=== PATIENT | male | born 1970 ===

== ENCOUNTER 2017-07-11 16:39 | Inpatient (IN) | payer OTHER ==
--- NOTE | 2017-07-11 18:00 | ED PDOC ---
Arrival/HPI - General Chief Complaint: Trauma Time Seen by Provider: 07/11/17 17:53 Historian: Patient, Family, Other (co-worker) EM Caveat: Acuity of Condition, Language Barrier (senegalese) - History of Present Illness Narrative History of Present Illness (Text): 07/11/17 17:53 Pt is a 47 yo male BIBA for an injury to the left hip s/p fall at work from a ladder approximately 36 inches in height. Pt reports that he was climbing the ladder and as he went to take anther step, the ladder base shifted and both he and the ladder tipped and landed on his left side on a plywood surface with stacked 4x4 wooden slabs. A co-worker, who is at bedside, immediately ran to help him. Pt was not able to move his leg well and could not weight-bear on standing. Denies LOC, vertigo, head trauma or injury to other body part, recent illness, cp, sob, NGUYEN, seizure activity, or previous hip, leg or back pain. Time/Duration: 1 hour Symptom Onset: Sudden Symptom Course: Worsening Quality: Aching, Pressure Severity Level: Moderate, Severe Activities at Onset: Rest, Light Context: Work Past Medical History - Provider Review Nursing Documentation Reviewed: Yes - Travel History Have you recently traveled outside [place] w/in the past 3 mons?: No - Past History Past History: No Previous - Infectious Disease Hx of Infectious Diseases: None - Tetanus Immunization Tetanus Immunization: Unknown - Psychiatric Hx Substance Use: No - Anesthesia Hx Anesthesia: No Family/Social History - Physician Review Nursing Documentation Reviewed: Yes Family/Social History: Unknown Family HX Smoking Status: Never Smoked Hx Alcohol Use: No Hx Substance Use: No Allergies/Home Meds Allergies/Adverse Reactions: Allergies No Known Allergies Allergy (Verified 07/11/17 16:53) Home Medications: Home Meds Medication Instructions Recorded Confirmed No Known Home Med 07/11/17 07/11/17 Review of Systems - Review of Systems Systems not reviewed;Unavailable: Acuity of Condition Constitutional: Normal Eyes: Normal ENT: Normal Respiratory: Normal Cardiovascular: Normal Gastrointestinal: Normal Genitourinary Male: Normal Musculoskeletal: Other (Left hip and thigh pain) Skin: Normal Neurological: Normal Endocrine: Normal Hemo/Lymphatic: Normal Psychiatric: Normal Physical Exam Vital Signs Reviewed: Yes Vital Signs Temp Pulse Resp BP Pulse Ox 07/11/17 22:05 90 16 132/91 H 97 07/11/17 16:54 97.9 F 94 H 18 140/87 100 Temperature: Afebrile Blood Pressure: Normal Pulse: Regular Respiratory Rate: Normal Appearance: Positive for: Non-Toxic, Uncomfortable Pain Distress: Moderate Mental Status: Positive for: Alert and Oriented X 3 - Systems Exam Head: Present: Atraumatic, Normocephalic Pupils: Present: PERRL Extroacular Muscles: Present: EOMI Conjunctiva: Present: Normal Mouth: Present: Moist Mucous Membranes Neck: Present: Normal Range of Motion Respiratory/Chest: Present: Clear to Auscultation, Good Air Exchange. No: Respiratory Distress, Accessory Muscle Use Cardiovascular: Present: Regular Rate and Rhythm, Normal S1, S2. No: Murmurs Abdomen: Present: Normal Bowel Sounds. No: Tenderness, Distention, Peritoneal Signs Back: Present: Normal Inspection Upper Extremity: Present: Normal Inspection. No: Cyanosis, Edema Lower Extremity: Present: NORMAL PULSES, Tenderness (left anterior and lateral hip pain on palpation), Neurovascularly Intact, Other (left anterior and lateral hip pain on palpation). No: Edema Neurological: Present: GCS=15, CN II-XII Intact, Speech Normal Skin: Present: Warm, Dry, Normal Color. No: Rashes Psychiatric: Present: Alert, Oriented x 3, Normal Insight, Normal Concentration Medical Decision Making ED Course and Treatment: 07/11/17 18:00 Impression Pt is a 47 yo male BIBA for an injury to the left hip s/p fall at work from a ladder approximately 36 inches in height. On exam, pt is neurovascularily intact bilateral LE, no left LE internal or external rotation appreciated, good EHL and dorsi and plantar flexion motor control; negative quad contraction limited by pain; point tenderness over the lateral hip; pt declined to stand and guarded left leg Plan Left hip XR in multiple views pain management assess and dispo Progress Note Toradol 30 mg im given to manage pain advised pt that x-ray positive for left femoral neck fracture and will require admission to orthopedic surgery coags and labs sent, ecg and cxr Spoke with dr. John but was redirected to Dr. 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 No IM Administration Charges Document 07/11/17 18:45 HI (Rec: 07/11/17 18:53 [id number]) Charges for Administration # of IM Administrations 1 Disposition/Present on Arrival - Present on Arrival Any Indicators Present on Arrival: Yes History of DVT/PE: No History of Uncontrolled Diabetes: No Urinary Catheter: No History of Decub. Ulcer: No History Surgical Site Infection Following: None - Disposition Have Diagnosis and Disposition been Completed?: Yes Diagnosis: Hip fracture, Left hip pain Disposition: HOSPITALIZED Disposition Time: 21:00 Patient Plan: Admission Condition: STABLE
--- NOTE | 2017-07-11 20:03 | RAD ---
EXAM: XR Left Hip With Pelvis When Performed, 2 or 3 Views CLINICAL HISTORY: 47 years old, male; Injury or trauma; Fall; Initial encounter; Blunt trauma (contusions or hematomas); Left; Hip TECHNIQUE: Two or three views of the left hip, with pelvis when performed. COMPARISON: No relevant prior studies available. FINDINGS: Bones/joints: Fracture left femoral neck, age-indeterminate. Superior displacement of distal fracture fragment. No dislocation. Soft tissues: Unremarkable. IMPRESSION: 1. Left femoral neck fracture.
[2017-07-11 21:33] LABS: HEMOGLOBIN 14.2 g/dL (14.0-18.0); MEAN CORPUSCULAR HEMOGLOBIN 28.1 pg (25.0-35.0); MEAN CORPUSCULAR HGB CONC 33.8 g/dl (31.0-37.0); RBC 5.06 10^6/uL (3.5-6.1); RED CELL DISTRIBUTION WIDTH 13.2 % (11.5-14.5); WHITE BLOOD COUNT 14.7 10^3/ul (4.5-11.0)
[2017-07-11 21:39] LABS: ALB/GLOB RATIO 1.6 (1.1-1.8); ALBUMIN 4.8 g/dL (3.0-4.8); ALT/SGPT 57 U/L (7-56); AST/SGOT 48 U/L (17-59); BLOOD UREA NITROGEN 19 mg/dL (7-21); GFR AFRICAN-AMERICAN > 60; GFR NON-AFRICAN AMERICAN > 60
[2017-07-11 21:42] LABS: INR 1.14 (0.93-1.08); PARTIAL THROMBOPLASTIN TIME 29.4 Seconds (25.1-36.5)
[2017-07-11 22:19] LABS: URINE APPEARANCE CLEAR (CLEAR); URINE BILIRUBIN NEGATIVE (NEGATIVE); URINE BLOOD NEGATIVE (NEGATIVE); URINE COLOR YELLOW (YELLOW); URINE GLUCOSE (UA) NEGATIVE (NEGATIVE); URINE LEUKOCYTE ESTERASE NEGATIVE Leu/uL (NEGATIVE); URINE NITRATE NEGATIVE (NEGATIVE); URINE PROTEIN NEGATIVE mg/dL (<30 mg/dL); URINE UROBILINOGEN 0.2 E.U./dL (<1 E.U./dL)
--- NOTE | 2017-07-11 22:19 | CP.PCM.HP ---
<Handy Ty - Last Filed: 07/12/17 00:12> History of Present Illness - History of Present Illness History of Present Illness: 47 yo male with no significant past medical history who presents s/p fall at work. Patient states he was at work on a ladder which was 36 inches high. Patient states that he was climbing the ladder and as he went to take anther step, the ladder base shifted and both he and the ladder tipped over. He states he landed on his left side while holding onto the ladder on a plywood surface with stacked 4x4 wooden slabs. A co-worker immediately ran to help him. Pt was not able to move his leg well and could not weight-bear when he tried to stand up. Patient denied hitting his hit, denied any LOC, vertigo, syncope or any other complaints at this time. PMH: none PSH: none Allergies: NKDA Meds: none Social: denies tobacco use, social drinker, denies illicit drug use Family history: none significant Present on Admission - Present on Admission Any Indicators Present on Admission: No Review of Systems - Constitutional Constitutional: absent: Anorexia, Chills, Fever, Headache - EENT Eyes: absent: Blurred Vision, Change in Vision Ears: absent: Dizziness Nose/Mouth/Throat: absent: Nasal Congestion, Sore Throat - Cardiovascular Cardiovascular: absent: Chest Pain, Dyspnea - Respiratory Respiratory: absent: Dyspnea, Dyspnea on Exertion - Gastrointestinal Gastrointestinal: absent: Abdominal Pain, Diarrhea, Nausea, Vomiting - Musculoskeletal Musculoskeletal: Radiating Pain into Limb Additional comments: pain in the left hip and upper left leg - Neurological Neurological: absent: Disequilibrium, Dizziness, Headaches, Vertigo, Weakness, Other Visual Disturbances Past Patient History - Infectious Disease Hx of Infectious Diseases: None - Past Social History Smoking Status: Never Smoked - PSYCHIATRIC Hx Substance Use: No - SURGICAL HISTORY Hx Surgeries: No - ANESTHESIA Hx Anesthesia: No Meds Allergies/Adverse Reactions: Allergies Allergy/AdvReac Type Severity Reaction Status Date / Time No Known Allergies Allergy Verified 07/11/17 16:53 Physical Exam - Constitutional Appears: Non-toxic, No Acute Distress - Head Exam Head Exam: ATRAUMATIC, NORMAL INSPECTION, NORMOCEPHALIC - Eye Exam Eye Exam: EOMI, Normal appearance - ENT Exam ENT Exam: Mucous Membranes Moist - Neck Exam Neck exam: Negative for: Lymphadenopathy, Tenderness - Respiratory Exam Respiratory Exam: Clear to Auscultation Bilateral, NORMAL BREATHING PATTERN - Cardiovascular Exam Cardiovascular Exam: REGULAR RHYTHM, +S1, +S2 - GI/Abdominal Exam GI & Abdominal Exam: Normal Bowel Sounds, Soft. absent: Tenderness - Extremities Exam Extremities exam: Positive for: pedal pulses present. Negative for: pedal edema Additional comments: cannot lift up left leg, right leg 5/5 strength - Neurological Exam Neurological exam: Alert, Oriented x3 - Additional Findings Additional findings: tenderness at left shoulder and left hip to palpation Results - Vital Signs Recent Vital Signs: Last Vital Signs Temp 97.9 F 07/11/17 16:54 Pulse 90 07/11/17 22:05 Resp 16 07/11/17 22:05 BP 132/91 H 07/11/17 22:05 Pulse Ox 97 07/11/17 22:05 - Labs Result Diagrams: 07/11/17 21:15 07/11/17 21:15 Labs: Laboratory Results - last 24 hr 07/11/17 07/11/17 07/11/17 21:15 21:15 21:15 WBC 14.7 H RBC 5.06 Hgb 14.2 Hct 42.0 MCV 83.0 MCH 28.1 MCHC 33.8 RDW 13.2 Plt Count 205 MPV 11.0 PT 13.0 H INR 1.14 H APTT 29.4 Sodium 144 Potassium 4.2 Chloride 101 Carbon Dioxide 29 Anion Gap 19 BUN 19 Creatinine 0.9 Est GFR ( Amer) > 60 Est GFR (Non-Af Amer) > 60 Random Glucose 169 H Calcium 10.0 Total Bilirubin 0.9 AST 48 ALT 57 H Alkaline Phosphatase 81 Total Protein 7.9 Albumin 4.8 Globulin 3.1 Albumin/Globulin Ratio 1.6 Assessment & Plan - Assessment and Plan (Free Text) Assessment: 47 yo male with no significant past medical history who presents s/p fall at work. Patient states he was at work on a ladder which was 36 inches high. Found to have left femoral neck fracture. Plan: 1. Mechanical Fall -EKG pending official read, non specific ST changes -chest xray pending official read -no LOC or trauma to head -hip/pelvic xray: left femoral neck fracture -left femur xray: pending official read -Morphine for pain control -NS@125 -NPO after midnight -Cardiology consulted, Luz Marina, non specific ST changes -ortho consulted, Radha, follow recs -TSH/T4 pending -Lipid panel pending -hemoglobin A1C pending <Bina John - Last Filed: 07/12/17 00:56> Results - Vital Signs Recent Vital Signs: Last Vital Signs Temp 99.4 F 07/11/17 22:49 Pulse 80 07/11/17 22:49 Resp 20 07/11/17 22:49 BP 135/81 07/11/17 22:49 Pulse Ox 98 07/11/17 22:49 - Labs Result Diagrams: 07/11/17 21:15 07/11/17 21:15 Labs: Laboratory Results - last 24 hr 07/11/17 07/11/17 07/11/17 21:15 21:15 21:15 WBC 14.7 H RBC 5.06 Hgb 14.2 Hct 42.0 MCV 83.0 MCH 28.1 MCHC 33.8 RDW 13.2 Plt Count 205 MPV 11.0 PT 13.0 H INR 1.14 H APTT 29.4 Sodium 144 Potassium 4.2 Chloride 101 Carbon Dioxide 29 Anion Gap 19 BUN 19 Creatinine 0.9 Est GFR ( Amer) > 60 Est GFR (Non-Af Amer) > 60 Random Glucose 169 H Calcium 10.0 Total Bilirubin 0.9 AST 48 ALT 57 H Alkaline Phosphatase 81 Total Protein 7.9 Albumin 4.8 Globulin 3.1 Albumin/Globulin Ratio 1.6 Urine Color Urine Appearance Urine pH Ur Specific [place] Urine Protein Urine Glucose (UA) Urine Ketones Urine Blood Urine Nitrate Urine Bilirubin Urine Urobilinogen Ur Leukocyte Esterase Blood Type Antibody Screen BBK History Checked 07/11/17 07/11/17 21:15 21:55 WBC RBC Hgb Hct MCV MCH MCHC RDW Plt Count MPV PT INR APTT Sodium Potassium Chloride Carbon Dioxide Anion Gap BUN Creatinine Est GFR ( Amer) Est GFR (Non-Af Amer) Random Glucose Calcium Total Bilirubin AST ALT Alkaline Phosphatase Total Protein Albumin Globulin Albumin/Globulin Ratio Urine Color Yellow Urine Appearance Clear Urine pH 6.0 Ur Specific [place] 1.025 Urine Protein Negative Urine Glucose (UA) Negative Urine Ketones 40 H Urine Blood Negative Urine Nitrate Negative Urine Bilirubin Negative Urine Urobilinogen 0.2 Ur Leukocyte Esterase Negative Blood Type B POSITIVE Antibody Screen Negative BBK History Checked No verified bt Attending/Attestation - Attestation I have personally seen and examined this patient.: Yes I have fully participated in the care of the patient.: Yes I have reviewed all pertinent clinical information: Yes Notes (Text): 07/12/17 00:[address] Ty. He states he fell along with the ladder on the L side when he was on the 3rd step of the ladder. Denies head injury or LOC following the fall.Denies dizziness or chest pain or any other symptoms before or after the fall.
[2017-07-12] MEDS: Sodium Chloride 0.9% 1,000 ML IV SCH ×2 (03:02→14:46)
[2017-07-12] MEDS: Morphine 2 mg/ml ISec IVP PRN ×2 (03:03→14:46)
[2017-07-12 06:57] LABS: BASO # 0.02 K/mm3 (0.0-2.0); BASO % 0.2 % (0.0-3.0); EOS # 0.2 (0.0-0.7); EOS % 1.7 % (1.5-5.0); GRAN # 7.98 (1.4-6.5); GRAN % 77.9 % (50.0-68.0); HEMOGLOBIN 13.3 g/dL (14.0-18.0); MEAN CELL VOLUME 83.7 fl (80.0-105.0); MEAN CORPUSCULAR HEMOGLOBIN 27.4 pg (25.0-35.0); MEAN CORPUSCULAR HGB CONC 32.8 g/dl (31.0-37.0); MEAN PLATELET VOLUME 11.3 fl (7.0-11.0); MONO % 10.2 % (1.0-6.0); RBC 4.85 10^6/uL (3.5-6.1); RED CELL DISTRIBUTION WIDTH 13.3 % (11.5-14.5); WHITE BLOOD COUNT 10.2 10^3/ul (4.5-11.0)
[2017-07-12 07:18] LABS: ALB/GLOB RATIO 1.5 (1.1-1.8); ALBUMIN 4.2 g/dL (3.0-4.8); ALT/SGPT 47 U/L (7-56); AST/SGOT 46 U/L (17-59); BLOOD UREA NITROGEN 18 mg/dL (7-21); CALCIUM 9.3 mg/dL (8.4-10.5); GFR AFRICAN-AMERICAN > 60; GFR NON-AFRICAN AMERICAN > 60; HDL CHOLESTEROL 43 mg/dL (29-60)
[2017-07-12 07:30] LABS: LDL CHOLESTEROL 146 mg/dL (0-129)
--- NOTE | 2017-07-12 09:12 | RAD ---
HISTORY: fracture COMPARISON: No prior. FINDINGS: LUNGS: No active pulmonary disease. PLEURA: No significant pleural effusion identified, no pneumothorax apparent. CARDIOVASCULAR: Normal. OSSEOUS STRUCTURES: No significant abnormalities. VISUALIZED UPPER ABDOMEN: Normal. OTHER FINDINGS: None. IMPRESSION: No active disease.
--- NOTE | 2017-07-12 10:43 | CP.PCM.PN ---
<CassyFrankie - Last Filed: 07/12/17 13:27> Subjective - Date & Time of Evaluation Date of Evaluation: 07/12/17 Time of Evaluation: 08:43 - Subjective Subjective: Frankie Madera PGY1 IM Progress Note Patient was seen and examined at bedside and translation was provided by [place] -speaking nurse. The patient states that he was on a ladder that slipped and he ended up falling off it. Denies LOC or head trauma. Patient states that he has no PMH, no PMD that he sees regularly, and does not take medications. Patient is tolerating pain and states it's 8/10 but he is in no current distress. Denies chest pain, shortness of breath, fevers/chills, n/v/d, weakness, numbness /tingling. Isabela from Dr. Riggins's office was contacted and states that he is aware of the consult and will come and examine patient at earliest chance. Objective - Vital Signs/Intake and Output Vital Signs (last 24 hours): Temp Pulse Resp BP Pulse Ox 99.2 F 79 20 123/85 97 07/12/17 08:21 07/12/17 08:21 07/12/17 08:21 07/12/17 08:21 07/12/17 08:21 Intake and Output: 07/12/17 07/12/17 06:59 18:59 Output Total 750 Balance -750 - Medications Medications: Current Medications Sodium Chloride (Sodium Chloride 0.9%) 1,000 mls @ 125 mls/hr IV .Q8H LIAM Last Admin: 07/12/17 03:02 Dose: 125 mls/hr Morphine Sulfate (Morphine) 2 mg IVP Q4H PRN PRN Reason: Pain, severe (8-10) Last Admin: 07/12/17 03:03 Dose: 2 mg - Labs Labs: 07/12/17 06:40 07/12/17 06:40 PT 13.0 SECONDS (9.4-12.5) H 07/11/17 21:15 INR 1.14 (0.93-1.08) H 07/11/17 21:15 APTT 29.4 Seconds (25.1-36.5) 07/11/17 21:15 - Constitutional Appears: Well, Non-toxic, No Acute Distress - Head Exam Head Exam: NORMAL INSPECTION - Eye Exam Eye Exam: Normal appearance - ENT Exam ENT Exam: Mucous Membranes Moist - Respiratory Exam Respiratory Exam: Clear to Ausculation Bilateral, NORMAL BREATHING PATTERN - Cardiovascular Exam Cardiovascular Exam: RRR - GI/Abdominal Exam GI & Abdominal Exam: Soft. absent: Distended, Tenderness - Extremities Exam Extremities Exam: Normal Inspection. absent: Pedal Edema Additional comments: L proximal femoral tenderness (mainly posterior lateral) pedal pulses present 2+ b/l - Back Exam Back Exam: NORMAL INSPECTION - Neurological Exam Neurological Exam: Alert, Awake, Oriented x3 - Psychiatric Exam Psychiatric exam: Normal Affect, Normal Mood - Skin Skin Exam: Normal Color, Warm Assessment and Plan - Assessment and Plan (Free Text) Assessment: 47 yo male with no significant past medical history who presents s/p fall at work. Patient states he was at work on a ladder which was 36 inches high. Found to have left femoral neck fracture. Plan: 1. Mechanical Fall - EKG unremarkable - CT hip shows displaced angulated subcapital hip fracture on the left - no LOC or trauma to head - hip/pelvic XR: left femoral neck fracture - L femoral XR: Subcapital fracture left femur - CXR unremarkable - Morphine for pain control - NS@125 - NPO after midnight - Cardiology consulted for pre-op clearance, recs appreciated - ortho consulted, Dr. Garcia ([phone]), follow recs - TSH wnl - LDL slightly elevated - hemoglobin A1C pending Patient is medically cleared for surgery. Patient was seen, examined and discussed with attending, Dr. Ranulfo Madera PGY1 Pager # [phone] <Karl Winchester - Last Filed: 07/13/17 13:26> Objective - Vital Signs/Intake and Output Vital Signs (last 24 hours): Temp Pulse Resp BP Pulse Ox 99.1 F 78 18 130/78 98 07/13/17 12:00 07/13/17 12:00 07/13/17 12:00 07/13/17 12:00 07/13/17 12:00 Intake and Output: 07/13/17 07/13/17 06:59 18:59 Intake Total 1000 Output Total 650 Balance -650 1000 - Medications Medications: Current Medications Enoxaparin Sodium (Lovenox) 40 mg SC DAILY LIAM PRN Reason: Protocol Last Admin: 07/12/17 13:00 Dose: Not Given Sodium Chloride (Sodium Chloride 0.9%) 1,000 mls @ 125 mls/hr IV .Q8H LIAM Last Admin: 07/13/17 02:14 Dose: Not Given Metoprolol Tartrate (Lopressor) 25 mg PO BID [facility] Morphine Sulfate (Morphine) 2 mg IVP Q4H PRN PRN Reason: Pain, severe (8-10) Last Admin: 07/13/17 06:08 Dose: 2 mg - Labs Labs: 07/13/17 06:30 07/13/17 06:30 PT 13.9 SECONDS (9.4-12.5) H 07/13/17 11:00 INR 1.20 (0.93-1.08) H 07/13/17 11:00 APTT 29.0 Seconds (25.1-36.5) 07/13/17 11:00 Attending/Attestation - Attestation I have personally seen and examined this patient.: Yes I have fully participated in the care of the patient.: Yes I have reviewed all pertinent clinical information, including history, physical exam and plan: Yes Notes (Text): 07/13/17 13:25 attending note; Patient seen and examined with the resident. Patient is a 47-year-old male admitted after a mechanical fall and left femoral neck fracture. Currently patient is hemodynamically stable. Denies any past medical history. Denies any chest pain,, shortness of breath. Denies any history of syncope. EKG showed nonspecific changes. Cardiology evaluation appreciated. Echocardiogram normal. Patient is medically stable to go for orthopedic procedure. Message left with 's service. The diagnosis and treatment plan discussed with patient in detail with [place]er- speaking nurse.
[2017-07-12] MEDS ORDERED: Enoxaparin 40 mg Syringe SC SCH (12:00)
--- NOTE | 2017-07-12 12:12 | CT ---
PROCEDURE: CT of the left hip without contrast HISTORY: L subcapital hip fx with arthritis COMPARISON: TECHNIQUE: Radiation dose: Total exam DLP = 525 mGy-cm. This CT exam was performed using one or more of the following dose reduction techniques: Automated exposure control, adjustment of the mA and/or kV according to patient size, and/or use of iterative reconstruction technique. FINDINGS: There is a displaced angulated subcapital hip fracture on the left. The acetabulum is intact. IMPRESSION: There is a displaced angulated subcapital hip fracture on the left.
--- NOTE | 2017-07-12 12:18 | RAD ---
PROCEDURE: Left femur HISTORY: fall COMPARISON: July 11, 2017. CT left hip TECHNIQUE: Standard protocol for this study/examination. FINDINGS: Acute subcapital fracture proximal left femur. Preservation of femoral head acetabular relationship. No distal abnormalities. IMPRESSION: Subcapital fracture left femur. Otherwise unremarkable
--- NOTE | 2017-07-12 14:30 | CARD ---
APPROVED REPORT EXAM: Two-dimensional and M-mode echocardiogram with Doppler and color Doppler. INDICATION Pre-Op 2D DIMENSIONS Left Atrium (2D)3.3 (1.6-4.0cm)IVSd0.9 (0.7-1.1cm) LVDd4.3 (3.9-5.9cm)PWd1.0 (0.7-1.1cm) LVDs3.0 (2.5-4.0cm)FS (%) 29.3 % LVEF (%)56.6 (>50%) M-Mode DIMENSIONS Aortic Root2.90 (2.2-3.7cm)Aortic Cusp Exc.1.70 (1.5-2.0cm) Aortic Valve AoV Peak Usgjqyvv636.0cm/Doyle Peak GR.11mmHg Mitral Valve MV E Ukgopene08.4cm/sMV A Pebalzpe19.9cm/sE/A ratio1.0 TDI Lateral E' Peak V15.10cm/sMedial E' Peak V9.85cm/sE/Lateral E'5.4 E/Medial E'8.3 Pulmonary Valve PV Peak Nsiuxxnx16.7cm/sPV Peak Grad.4mmHg Tricuspid Valve TR Peak Auzibwpp186or/sRAP KPWSDWPR32efHxHF Peak Gr.23mmHg [id number] LEFT VENTRICLE The left ventricle is normal size. There is normal left ventricular wall thickness. The left ventricular function is normal. The left ventricular ejection fraction is within the normal range. There is normal LV segmental wall motion. The left ventricular diastolic function is normal. No left ventricle thrombus noted on this study. RIGHT VENTRICLE The right ventricle is normal size. There is normal right ventricular wall thickness. The right ventricular systolic function is normal. ATRIA The left atrium size is normal. The right atrium size is normal. AORTIC VALVE The aortic valve is normal in structure. No aortic regurgitation is present. There is no aortic valvular stenosis. MITRAL VALVE The mitral valve is normal in structure. There is no mitral valve regurgitation noted. There is no mitral valve stenosis. TRICUSPID VALVE The tricuspid valve is normal in structure. There is no tricuspid valve regurgitation noted. GREAT VESSELS The aortic root is normal in size. PERICARDIAL EFFUSION There is no pericardial effusion. <Conclusion> The left ventricle is normal size. There is normal left ventricular wall thickness. The left ventricular function is normal. The left ventricular ejection fraction is within the normal range. There is normal LV segmental wall motion. The left ventricular diastolic function is normal.
--- NOTE | 2017-07-12 16:00 | CARD ---
APPROVED REPORT EKG Measurement Heart [id number] [place] [id number] [id number] <Conclusion> Normal sinus rhythm with sinus arrhythmia Nonspecific T wave abnormality Abnormal ECG
--- NOTE | 2017-07-12 16:11 | CARD ---
APPROVED REPORT EKG Measurement Heart [id number] [place] [id number] [id number] <Conclusion> Normal sinus rhythm Nonspecific T wave abnormality Abnormal ECG
[2017-07-13] MEDS: Sodium Chloride 0.9% 1,000 ML IV SCH ×4 (02:14→20:29)
[2017-07-13] MEDS: Morphine 2 mg/ml ISec IVP PRN (06:08)
[2017-07-13 07:17] LABS: BASO # 0.02 K/mm3 (0.0-2.0); BASO % 0.2 % (0.0-3.0); EOS # 0.1 (0.0-0.7); EOS % 0.9 % (1.5-5.0); GRAN # 8.79 (1.4-6.5); GRAN % 80.7 % (50.0-68.0); HEMOGLOBIN 12.7 g/dL (14.0-18.0); LYMPH # 1.1 (1.2-3.4); LYMPH % 9.7 % (22.0-35.0); MEAN CORPUSCULAR HEMOGLOBIN 27.4 pg (25.0-35.0); MEAN CORPUSCULAR HGB CONC 32.6 g/dl (31.0-37.0); MEAN PLATELET VOLUME 11.1 fl (7.0-11.0); MONO # 0.9 (0.1-0.6); MONO % 8.5 % (1.0-6.0); RBC 4.63 10^6/uL (3.5-6.1); RED CELL DISTRIBUTION WIDTH 13.2 % (11.5-14.5); WHITE BLOOD COUNT 10.9 10^3/ul (4.5-11.0)
[2017-07-13 07:31] LABS: ALB/GLOB RATIO 1.4 (1.1-1.8); ALT/SGPT 43 U/L (7-56); AST/SGOT 38 U/L (17-59); BLOOD UREA NITROGEN 10 mg/dL (7-21); CALCIUM 8.9 mg/dL (8.4-10.5); GFR AFRICAN-AMERICAN > 60; GFR NON-AFRICAN AMERICAN > 60
--- NOTE | 2017-07-13 09:35 | CON ---
DATE: REASON FOR CONSULTATION: Preoperative evaluation. 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 The patient denies any loss of consciousness or any head injury. The patient attributed the fall to mechanical factors with his ladder stability. The patient did report a fall from ladder before. The patient states this was his first time he had to go on a ladder of the height of 36 feet. SOCIAL HISTORY: Nonsmoker. Nondrinker. . MEDICATIONS: Morphine sulfate mg intravenous q.4 hours and normal saline 125 mL/hour. REVIEW OF SYSTEMS: No chest pain. No dizziness or syncope. PHYSICAL EXAMINATION: GENERAL: The patient is a middle-aged male who does not appear to be in any acute distress at this time. VITAL SIGNS: Blood pressure 123/85, heart rate 79, temperature 99.2, and respirations 20. HEENT: Normocephalic. CHEST: Clear. HEART: S1 and S2 regular. ABDOMEN: Soft. EXTREMITIES: No edema or calf tenderness. LABORATORY DATA: Today's SMA-7 is entirely within normal limits. LDL cholesterol is elevated at 146. TSH level and T4 are within normal limits. Hemoglobin and hematocrit today are and 40.6. White count and platelet count are within normal limits. INR is 1.14 and PTT is 24.9. EKG revealed sinus rhythm with nonspecific Q-wave changes. ASSESSMENT: 1. 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 2. Nonspecific Q-wave changes on EKG. 3. Hyperlipidemia. RECOMMENDATIONS: Continue morphine sulfate and IV fluids. Start Lovenox at 40 mg once a day, obtain an echocardiogram. Delano Raza MD
[2017-07-13 11:49] LABS: INR 1.2 (0.93-1.08); PROTHROMBIN TIME 13.9 SECONDS (9.4-12.5)
[2017-07-13] MEDS ORDERED: Succinylcholine 200 mg/10 ml Inj IV ONE (12:20)
[2017-07-13] MEDS ORDERED: Etomidate 20 mg/10ml Inj IV ONE (12:20)
[2017-07-13] MEDS ORDERED: Propofol 10 mg/ml Inj (20 ML) ONE ×2 (12:20→16:09)
[2017-07-13] MEDS ORDERED: Rocuronium 10 mg/ml (5 ml) ONE ×3 (12:20→14:36)
[2017-07-13] MEDS ORDERED: Phenylephrine 10 mg/ml Inj ONE (12:20)
[2017-07-13] MEDS ORDERED: Bupivacaine 0.5% Inj(30mL) ONE (13:03)
[2017-07-13] MEDS ORDERED: Midazolam 2 MG/2 ML VIAL ONE (13:39)
[2017-07-13] MEDS ORDERED: Morphine 1 mg/ml preservative-free Inj(Duramorph) ONE (13:40)
--- NOTE | 2017-07-13 15:20 | PN ---
DATE: The patient denies any shortness of breath. OBJECTIVE VITAL SIGNS: Blood pressure 141/95, heart rate 74, temperature 99.7, respirations 20. HEENT: Normocephalic. CHEST: Clear. HEART: Sounds regular. EXTREMITIES: No edema. DATA: Hemoglobin and hematocrit 12.7 and 38.9. White count and platelet count are within normal limits. Today's SMA-7 is within normal limits. Hip CT scan did reveal displaced angulated subcapital hip fracture on the left. Echocardiogram study was unremarkable study. Repeat 12-lead EKG yesterday revealed sinus rhythm with nonspecific T-wave abnormality. ASSESSMENT 1. Status post fall and left hip fracture. 2. Hypertension. 3. Nonspecific echocardiographic changes. Continue current morphine sulfate. Start Lopressor 25 mg twice a day. The patient is scheduled for open reduction and internal fixation of his left hip fracture today. Postoperative telemetry monitoring. Delano Raza MD
[2017-07-13] MEDS ORDERED: Neostigmine Methylsulfate 3mg/3ml Syringe IV ONE (15:58)
[2017-07-13] MEDS ORDERED: Desflurane Inhalation Anesthetic Liq (240 ml) ONE (16:48)
[2017-07-13] MEDS ORDERED: Esmolol 100 mg/10ml Inj IV ONE (17:06)
--- NOTE | 2017-07-13 17:14 | CP.PCM.PN ---
<CassyFrankie - Last Filed: 07/14/17 04:33> Subjective - Date & Time of Evaluation Date of Evaluation: 07/14/17 Time of Evaluation: 09:33 - Subjective Subjective: Frankie Madera PGY1 IM Progress Note Patient was seen and examined at bedside. His pain is controlled and he seems comfortable. He is currently NPO For OR today. Denies chest pain, shortness of breath, fevers/chills, n/v/d, weakness, numbness/tingling. Objective - Vital Signs/Intake and Output Vital Signs (last 24 hours): Temp Pulse Resp BP Pulse Ox 99.1 F 78 18 130/78 98 07/13/17 12:00 07/13/17 12:00 07/13/17 12:00 07/13/17 12:00 07/13/17 12:00 Intake and Output: 07/13/17 07/13/17 06:59 18:59 Intake Total 1000 Output Total 650 Balance -650 1000 - Medications Medications: Current Medications Enoxaparin Sodium (Lovenox) 40 mg SC DAILY [facility] PRN Reason: Protocol Last Admin: 07/12/17 13:00 Dose: Not Given Sodium Chloride (Sodium Chloride 0.9%) 1,000 mls @ 125 mls/hr IV .Q8H [facility] Last Admin: 07/13/17 02:14 Dose: Not Given Metoprolol Tartrate (Lopressor) 25 mg PO BID [facility] Morphine Sulfate (Morphine) 2 mg IVP Q4H PRN PRN Reason: Pain, severe (8-10) Last Admin: 07/13/17 06:08 Dose: 2 mg - Labs Labs: 07/13/17 06:30 07/13/17 06:30 PT 13.9 SECONDS (9.4-12.5) H 07/13/17 11:00 INR 1.20 (0.93-1.08) H 07/13/17 11:00 APTT 29.0 Seconds (25.1-36.5) 07/13/17 11:00 - Additional Findings Additional findings: - Constitutional Appears: Well, Non-toxic, No Acute Distress - Head Exam Head Exam: NORMAL INSPECTION - Eye Exam Eye Exam: Normal appearance - ENT Exam ENT Exam: Mucous Membranes Moist - Respiratory Exam Respiratory Exam: Clear to Ausculation Bilateral, NORMAL BREATHING PATTERN - Cardiovascular Exam Cardiovascular Exam: RRR - GI/Abdominal Exam GI & Abdominal Exam: Soft. absent: Distended, Tenderness - Extremities Exam Extremities Exam: Normal Inspection. absent: Pedal Edema Additional comments: L proximal femoral tenderness (mainly posterior lateral) pedal pulses present 2+ b/l melendrez catheter in - Back Exam Back Exam: NORMAL INSPECTION - Neurological Exam Neurological Exam: Alert, Awake, Oriented x3 - Psychiatric Exam Psychiatric exam: Normal Affect, Normal Mood - Skin Skin Exam: Normal Color, Warm Assessment and Plan - Assessment and Plan (Free Text) Assessment: 47 yo male with no significant past medical history who presents s/p fall at work. Patient states he was at work on a ladder which was 36 inches high. Found to have left femoral neck fracture. Plan: 1. L hip fracture s/p mechanical Fall - NPO for OR today - CT hip shows displaced angulated subcapital hip fracture on the left - no LOC or trauma to head - hip/pelvic XR: left femoral neck fracture - L femoral XR: Subcapital fracture left femur - CXR unremarkable - Morphine for pain control - NS@125 - Cardiology consulted for pre-op clearance, recs appreciated - ortho consulted, Dr. Garcia ([phone]), follow recs - TSH wnl - LDL slightly elevated - hemoglobin A1C 5.8 Patient is medically cleared for surgery. Patient was seen, examined and discussed with attending, Dr. Ranulfo Madera PGY1 Pager # [phone] <Karl Winchester - Last Filed: 07/14/17 15:07> Objective - Vital Signs/Intake and Output Vital Signs (last 24 hours): Temp Pulse Resp BP Pulse Ox 99.4 F 96 H 16 106/72 99 07/14/17 12:12 07/14/17 10:16 07/13/17 19:10 07/14/17 10:16 07/13/17 19:10 Intake and Output: 07/14/17 07/14/17 06:59 18:59 Intake Total 1480 Output Total 900 Balance 580 - Medications Medications: Current Medications Acetaminophen (Tylenol 325mg Tab) 650 mg PO Q6H PRN PRN Reason: Fever >100.4 F Last Admin: 07/14/17 11:12 Dose: 650 mg Docusate Sodium (Colace) 100 mg PO BID [facility] Last Admin: 07/14/17 10:13 Dose: 100 mg Enoxaparin Sodium (Lovenox) 40 mg SC Q24H [facility] PRN Reason: Protocol Hydromorphone HCl (Dilaudid) 0.5 mg IVP Q4H PRN PRN Reason: Pain, severe (8-10) Last Admin: 07/14/17 10:13 Dose: 0.5 mg Metoprolol Tartrate (Lopressor) 25 mg PO BID [facility] Last Admin: 07/14/17 10:16 Dose: Not Given Multivitamins/Minerals (Therapeutic-M Tab) 1 tab PO DAILY [facility] Last Admin: 07/14/17 10:13 Dose: 1 tab Oxycodone/Acetaminophen (Percocet 5/325 Mg Tab) 2 tab PO Q4 PRN PRN Reason: Pain, moderate (4-7) Stop: 07/16/17 17:44 - Labs Labs: 07/14/17 07:00 07/14/17 07:00 PT 13.9 SECONDS (9.4-12.5) H 07/13/17 11:00 INR 1.20 (0.93-1.08) H 07/13/17 11:00 APTT 29.0 Seconds (25.1-36.5) 07/13/17 11:00 Attending/Attestation - Attestation I have personally seen and examined this patient.: Yes I have fully participated in the care of the patient.: Yes I have reviewed all pertinent clinical information, including history, physical exam and plan: Yes Notes (Text): 07/14/17 15:05 attending note; Patient seen and examined with the resident. Patient is a 47-year-old male admitted after a mechanical fall and left femoral neck fracture. Currently patient is hemodynamically stable. Denies any past medical history. Denies any chest pain,, shortness of breath. Denies any history of syncope. EKG showed nonspecific changes. Cardiology evaluation appreciated. Echocardiogram normal. status post ORIF. Monitor closely. PT evaluation and possible rehabilitation. The diagnosis and treatment plan discussed with patient in detail with Frisian- speaking nurse.
[2017-07-13] MEDS ORDERED: Bacitracin Ointment 30 GM TUBE ONE (17:20)
--- NOTE | 2017-07-13 17:31 | CP.PCM.CON ---
History of Present Illness - History of Present Illness History of Present Illness: ID: 47 yo male CC: Sever pain andrestricted ROM L hip with external rotation deformity HP*I- 47 yo male from [place] presents to [facility] after a fall from a ladder while at work. Pt isb taken to [facility] where L hip fx diagnosed. I attended the pt yesterday, while he was at CT scan. Pt is stabilized, cleared medically for OR. 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 pt admitted for medical stabilization and to [facility] for L THR ( concept of AVN because of disruption o0f blood supply from ruptured retinacular vessels discussed No promises or guarantees were made. Possibility of mechanical failure/infection/thromboembolic disease, possibility of secondary or tertiary surgery discussed. NO PROMISES/GUARANTEES Past Patient History - Infectious Disease Hx of Infectious Diseases: None - Tetanus Immunizations Tetanus Immunization: Unknown - Past Social History Smoking Status: Never Smoked - CARDIAC Hx Cardiac Disorders: No - PULMONARY Hx Respiratory Disorders: No - NEUROLOGICAL Hx Neurological Disorder: No - HEENT Hx HEENT Problems: No - RENAL Hx Chronic Kidney Disease: No - ENDOCRINE/METABOLIC Hx Endocrine Disorders: No - HEMATOLOGICAL/ONCOLOGICAL Hx Blood Transfusions: No Hx Blood Transfusion Reaction: No - INTEGUMENTARY Hx Dermatological Problems: No - MUSCULOSKELETAL/RHEUMATOLOGICAL Hx Musculoskeletal Disorders: No Hx Falls: No - GASTROINTESTINAL Hx Gastrointestinal Disorders: No - GENITOURINARY/GYNECOLOGICAL Hx Genitourinary Disorders: No - PSYCHIATRIC Hx Substance Use: No - SURGICAL HISTORY Hx Surgeries: No - ANESTHESIA Hx Anesthesia Reactions: No Hx Malignant Hyperthermia: No Meds Allergies/Adverse Reactions: Allergies Allergy/AdvReac Type Severity Reaction Status Date / Time No Known Allergies Allergy Verified 07/11/17 16:53 - Medications Medications: Current Medications Enoxaparin Sodium (Lovenox) 40 mg SC DAILY [facility] PRN Reason: Protocol Last Admin: 07/12/17 13:00 Dose: Not Given Sodium Chloride (Sodium Chloride 0.9%) 1,000 mls @ 125 mls/hr IV .Q8H [facility] Last Admin: 07/13/17 02:14 Dose: Not Given Metoprolol Tartrate (Lopressor) 25 mg PO BID [facility] Morphine Sulfate (Morphine) 2 mg IVP Q4H PRN PRN Reason: Pain, severe (8-10) Last Admin: 07/13/17 06:08 Dose: 2 mg Physical Exam - Additional Findings Additional findings: pHYSICAL EXAM SYSTEMIC EXAM- PER ADMITTING HOSPITALIST' Musculoskekltal- stance/.gait- defrred pt with trochanteric eccyhmosis pt with shortening/external roation L lower ext N/V intact Results - Vital Signs Recent Vital Signs: Last Vital Signs Temp 99.1 F 07/13/17 12:00 Pulse 78 07/13/17 12:00 Resp 18 07/13/17 12:00 BP 130/78 07/13/17 12:00 Pulse Ox 98 07/13/17 12:00 - Labs Result Diagrams: 07/13/17 06:30 07/13/17 06:30 Labs: Laboratory Results - last 24 hr 07/11/17 07/13/17 07/13/17 21:15 06:30 06:30 WBC 10.9 RBC 4.63 Hgb 12.7 L Hct 38.9 L MCV 84.0 MCH 27.4 MCHC 32.6 RDW 13.2 Plt Count 187 MPV 11.1 H Gran % 80.7 H Lymph % (Auto) 9.7 L [place] % (Auto) 8.5 H Eos % (Auto) 0.9 L Baso % (Auto) 0.2 Gran # 8.79 H Lymph # (Auto) 1.1 L [place] # (Auto) 0.9 H Eos # (Auto) 0.1 Baso # (Auto) 0.02 PT INR APTT Sodium 140 Potassium 3.7 Chloride 103 Carbon Dioxide 26 Anion Gap 14 BUN 10 Creatinine 0.8 Est GFR ( Amer) > 60 Est GFR (Non-Af Amer) > 60 Random Glucose 106 Calcium 8.9 Total Bilirubin 1.2 AST 38 ALT 43 Alkaline Phosphatase 59 Total Protein 6.9 Albumin 4.0 Globulin 2.9 Albumin/Globulin Ratio 1.4 Blood Type B POSITIVE Antibody Screen Negative Crossmatch See Detail BBK History Checked No verified bt 07/13/17 11:00 WBC RBC Hgb Hct MCV MCH MCHC RDW Plt Count MPV Gran % Lymph % (Auto) [place] % (Auto) Eos % (Auto) Baso % (Auto) Gran # Lymph # (Auto) [place] # (Auto) Eos # (Auto) Baso # (Auto) PT 13.9 H INR 1.20 H APTT 29.0 Sodium Potassium Chloride Carbon Dioxide Anion Gap BUN Creatinine Est GFR ( Amer) Est GFR (Non-Af Amer) Random Glucose Calcium Total Bilirubin AST ALT Alkaline Phosphatase Total Protein Albumin Globulin Albumin/Globulin Ratio Blood Type Antibody Screen Crossmatch BBK History Checked - Impressions Impression: Imaging Xrays- displaced Gardens 4 subcapital L femur fx preexisting O/A L hip Assessment & Plan - Assessment and Plan (Free Text) Assessment: A- Garden's 4 subcapital L femur fx (post traumatic) preexisting primary O/A \ P- to Or after medical stabilization for L THR- informed comnsent obatined thru a professional culturally competent translatoPt abnd his DEMAND TOTAL HIP ARTHROPLASTY as the definitive treatment modality
--- NOTE | 2017-07-13 17:37 | PCM.SURG1 ---
Surgeon's Initial Post Op Note - Surgeon's Notes Surgeon: Radha Anesthetic Assistant: 1st assist- Heide Hampton PA-C/ 2nd assist J CARLOS Maciel ( both essential Type of Anesthesia: General Endo, Spinal Anesthesia Administered By: Dr Marcell Mueller Pre-Operative Diagnosis: Displaced Garden's4 subcap[ital l femur fx. pre- existing O/A L hip Operative Findings: as above with contracture of the iliopsoas tendon Post-Operative Diagnosis: as above Operation Performed: L THR- anterior approach. femoral neck osteotomy. release iliopsoas tendon. autograft bone graft to acetabukum. [id number] of fluor interpretation of video images Specimen/Specimens Removed: femoral head/neck. synovium Estimated Blood Loss: EBL {In ML}: 225 Blood Products Given: N/A Drains Used: No Drains Post-Op Condition: Good Date of Surgery/Procedure: 07/13/17 Time of Surgery/Procedure: 14:40 (13:40)
[2017-07-13] MEDS ORDERED: HYDROmorphone 0.5 mg/0.5 ml ISec IVP PRN (17:39)
[2017-07-13] MEDS ORDERED: Oxycodone/Acetaminophen 5/325 mg Tab PO PRN (17:43)
[2017-07-13] MEDS ORDERED: Lactated Ringer's 1,000 ML IV SCH (17:45)
[2017-07-13] MEDS ORDERED: HYDROmorphone 1 mg/ml ISec ONE (17:46)
[2017-07-13] MEDS: ceFAZolin 2 GM in Sodium Chloride 0.9% 100 ML IVPB SCH (21:40)
[2017-07-14] MEDS: ceFAZolin 2 GM in Sodium Chloride 0.9% 100 ML IVPB SCH (06:08)
[2017-07-14] MEDS: Sodium Chloride 0.9% 1,000 ML IV SCH ×2 (06:09→15:07)
[2017-07-14 07:29] LABS: GRAN # 9.65 (1.4-6.5); HEMOGLOBIN 10.3 g/dL (14.0-18.0); LYMPH # 0.5 (1.2-3.4); LYMPH % 4.4 % (22.0-35.0); MEAN CELL VOLUME 83.5 fl (80.0-105.0); MEAN CORPUSCULAR HGB CONC 32.4 g/dl (31.0-37.0); MONO # 1.3 (0.1-0.6); MONO % 11.6 % (1.0-6.0); PLATELET COUNT 170 10^3/uL (120.0-450.0); RBC 3.81 10^6/uL (3.5-6.1); RED CELL DISTRIBUTION WIDTH 13.1 % (11.5-14.5); WHITE BLOOD COUNT 11.5 10^3/ul (4.5-11.0)
[2017-07-14 07:48] LABS: ALB/GLOB RATIO 1.3 (1.1-1.8); ALBUMIN 3.2 g/dL (3.0-4.8); ALT/SGPT 44 U/L (7-56); AST/SGOT 56 U/L (17-59); BLOOD UREA NITROGEN 12 mg/dL (7-21); CALCIUM 8.4 mg/dL (8.4-10.5); GFR AFRICAN-AMERICAN > 60; GFR NON-AFRICAN AMERICAN > 60
--- NOTE | 2017-07-14 09:38 | RAD ---
PROCEDURE: Left Hip X-ray Radiographs. HISTORY: pt in PACU s/p THR COMPARISON: Comparison is made to the previous exam. FINDINGS: BONES: Normal. No fracturePatient status post left hip arthroplasty. The hardware is seen at appropriate position. Postsurgical changes seen adjacent to the left hip. JOINTS: Hardware is seen in appropriate position without evidence of dislocation. No evidence of dislocation at the right hip. SOFT TISSUES: Normal. OTHER FINDINGS: None. IMPRESSION: Status post left hip arthroplasty. Postsurgical changes.
[2017-07-14] MEDS: Multivitamin With Minerals Tab PO SCH (10:13)
[2017-07-14] MEDS: HYDROmorphone 0.5 mg/0.5 ml ISec IVP PRN ×3 (10:13→20:08)
[2017-07-14 11:01] LABS: BAND 3 % (0-2); LYMPHOCYTE 6 % (22.0-35.0); MONOCYTE 6 % (1.0-6.0); NEUTROPHIL 85 % (50.0-70.0); PLATELET ESTIMATE NORMAL (NORMAL)
[2017-07-14 11:02] LABS: ANISOCYTOSIS SLIGHT; HYPOCHROMIA SLIGHT
--- NOTE | 2017-07-14 12:54 | CP.PCM.PN ---
Subjective - Date & Time of Evaluation Date of Evaluation: 07/14/17 Time of Evaluation: 12:52 - Subjective Subjective: Patient states he feels much better. He has little pain in his hip. Denies CP/ SOB/dizziness. Objective - Vital Signs/Intake and Output Vital Signs (last 24 hours): Temp Pulse Resp BP Pulse Ox 99.4 F 96 H 16 106/72 99 07/14/17 12:12 07/14/17 10:16 07/13/17 19:10 07/14/17 10:16 07/13/17 19:10 Intake and Output: 07/14/17 07/14/17 06:59 18:59 Intake Total 1480 Output Total 900 Balance 580 - Medications Medications: Current Medications Acetaminophen (Tylenol 325mg Tab) 650 mg PO Q6H PRN PRN Reason: Fever >100.4 F Last Admin: 07/14/17 11:12 Dose: 650 mg Docusate Sodium (Colace) 100 mg PO BID [facility] Last Admin: 07/14/17 10:13 Dose: 100 mg Enoxaparin Sodium (Lovenox) 40 mg SC Q24H [facility] PRN Reason: Protocol Hydromorphone HCl (Dilaudid) 0.5 mg IVP Q4H PRN PRN Reason: Pain, severe (8-10) Last Admin: 07/14/17 10:13 Dose: 0.5 mg Sodium Chloride (Sodium Chloride 0.9%) 1,000 mls @ 125 mls/hr IV .Q8H [facility] Last Admin: 07/14/17 06:09 Dose: 125 mls/hr Metoprolol Tartrate (Lopressor) 25 mg PO BID [facility] Last Admin: 07/14/17 10:16 Dose: Not Given Multivitamins/Minerals (Therapeutic-M Tab) 1 tab PO DAILY [facility] Last Admin: 07/14/17 10:13 Dose: 1 tab Oxycodone/Acetaminophen (Percocet 5/325 Mg Tab) 2 tab PO Q4 PRN PRN Reason: Pain, moderate (4-7) Stop: 07/16/17 17:44 - Labs Labs: 07/14/17 07:00 07/14/17 07:00 PT 13.9 SECONDS (9.4-12.5) H 07/13/17 11:00 INR 1.20 (0.93-1.08) H 07/13/17 11:00 APTT 29.0 Seconds (25.1-36.5) 07/13/17 11:00 - Extremities Exam Additional comments: +ROM ankle;/toes, sensation intact, thigh mild swelling, no active drainage. calves soft NT neg homans Assessment and Plan (1) Left displaced femoral neck fracture Assessment & Plan: POD#1 s/p left THR PT/OT VTE proph d/c planning to acute rehab labs reviewed, ortho stable d/w Dr. Garcia, agrees with above Status: Acute
--- NOTE | 2017-07-14 15:48 | PN ---
DATE: FOLLOWUP SUBJECTIVE: The patient underwent total left hip replacement. He denies any chest pain. PHYSICAL EXAMINATION: VITAL SIGNS: Blood pressure 106/72, heart rate 96, temperature 101.5, respirations 20. HEENT: Normocephalic. CHEST: Clear. HEART: S1 and S2 regular. EXTREMITIES: No edema. LABORATORY DATA: Today's hemoglobin and hematocrit 10.3 and 31.8, white count 11.5, platelet count 170,000. Today's SMA-7 is within normal limit. ASSESSMENT: 1. Status post total left hip replacement for traumatic left hip fracture. 2. Hypertension. RECOMMENDATIONS: Continue current Lopressor 25 mg twice a day, subcutaneous Lovenox is 40 mg once a day. Obtain 12-lead EKG. Delano Raza MD
[2017-07-14] MEDS ORDERED: Enoxaparin 40 mg Syringe SC SCH (16:00)
--- NOTE | 2017-07-14 17:25 | RAD ---
PROCEDURE: Fluoroscopy up to 1 hr. HISTORY: HIP REPLACEMENT (LEFT) COMPARISON: None TECHNIQUE: Standard protocol for this study/examination. FINDINGS: Total fluoroscopic time (continuous mode) utilized during the procedure: 17.1 seconds. Total exam DLP: (mGy): 2.73. IMPRESSION: Submitted images from the current procedure: 6.0.
--- NOTE | 2017-07-14 18:50 | CP.PCM.PN ---
<Frankie Madera - Last Filed: 07/14/17 18:41> Subjective - Date & Time of Evaluation Date of Evaluation: 07/14/17 Time of Evaluation: 11:41 - Subjective Subjective: Frankie Madera PGY1 IM Progress Note Patient was seen and examined at bedside. His pain is controlled and he seems comfortable. Patient states that he tolerated the surgery well and that he is able to move his extremities with no difficulty. Denies chest pain, shortness of breath, fevers/chills, n/v/d, weakness, numbness/tingling. Objective - Vital Signs/Intake and Output Vital Signs (last 24 hours): Temp Pulse Resp BP Pulse Ox 99.4 F 93 H 16 116/73 99 07/14/17 12:12 07/14/17 17:22 07/13/17 19:10 07/14/17 17:22 07/13/17 19:10 Intake and Output: 07/14/17 07/14/17 06:59 18:59 Intake Total 1480 Output Total 900 Balance 580 - Medications Medications: Current Medications Acetaminophen (Tylenol 325mg Tab) 650 mg PO Q6H PRN PRN Reason: Fever >100.4 F Last Admin: 07/14/17 11:12 Dose: 650 mg Docusate Sodium (Colace) 100 mg PO BID [facility] Last Admin: 07/14/17 17:21 Dose: 100 mg Enoxaparin Sodium (Lovenox) 40 mg SC Q24H [facility] PRN Reason: Protocol Last Admin: 07/14/17 17:23 Dose: 40 mg Hydromorphone HCl (Dilaudid) 0.5 mg IVP Q4H PRN PRN Reason: Pain, severe (8-10) Last Admin: 07/14/17 16:09 Dose: 0.5 mg Metoprolol Tartrate (Lopressor) 25 mg PO BID [facility] Last Admin: 07/14/17 17:22 Dose: 25 mg Multivitamins/Minerals (Therapeutic-M Tab) 1 tab PO DAILY [facility] Last Admin: 07/14/17 10:13 Dose: 1 tab Oxycodone/Acetaminophen (Percocet 5/325 Mg Tab) 2 tab PO Q4 PRN PRN Reason: Pain, moderate (4-7) Stop: 07/16/17 17:44 - Labs Labs: 07/14/17 07:00 07/14/17 07:00 PT 13.9 SECONDS (9.4-12.5) H 07/13/17 11:00 INR 1.20 (0.93-1.08) H 07/13/17 11:00 APTT 29.0 Seconds (25.1-36.5) 07/13/17 11:00 - Additional Findings Additional findings: - Constitutional Appears: Well, Non-toxic, No Acute Distress - Head Exam Head Exam: NORMAL INSPECTION - Eye Exam Eye Exam: Normal appearance - ENT Exam ENT Exam: Mucous Membranes Moist - Respiratory Exam Respiratory Exam: Clear to Ausculation Bilateral, NORMAL BREATHING PATTERN - Cardiovascular Exam Cardiovascular Exam: RRR - GI/Abdominal Exam GI & Abdominal Exam: Soft. absent: Distended, Tenderness - Extremities Exam Extremities Exam: Normal Inspection. absent: Pedal Edema Additional comments: dressing over L anterolateral thigh clean/dry/intact pedal pulses present 2+ b/l melendrez catheter removed - Back Exam Back Exam: NORMAL INSPECTION - Neurological Exam Neurological Exam: Alert, Awake, Oriented x3 - Psychiatric Exam Psychiatric exam: Normal Affect, Normal Mood - Skin Skin Exam: Normal Color, Warm Assessment and Plan - Assessment and Plan (Free Text) Assessment: 47 yo male with no significant past medical history who presents s/p fall off ladder at work. Found to have left femoral neck fracture. Plan: 1. L hip fracture s/p mechanical Fall - POD 1 L total hip replacement (anterior approach), H/H and vitals are stable - cont to monitor for post-op fevers - encouraged ambulation and incentive spirometer - PT eval recommending acute rehab - CT hip showed displaced angulated subcapital hip fracture on the left - no LOC or trauma to head - hip/pelvic XR: left femoral neck fracture - L femoral XR: Subcapital fracture left femur - CXR unremarkable - Percocet and Dilaudid PRN for pain control - NS@125 - tylenol prn fevers - Lovenox 40mg SC for DVT ppx - Cardiology consulted for pre-op clearance, recs appreciated - ortho consulted, Dr. Garcia ([phone]), follow recs - TSH wnl - LDL slightly elevated - hemoglobin A1C 5.8 - Patient should be anticoagulated for at least 2 weeks post-op and followup with PMD and surgeon within 2 weeks of discharge Patient is medically cleared for surgery. Patient was seen, examined and discussed with attending, Dr. Ranulfo Madera PGY1 Pager # [phone] <Karl Winchester - Last Filed: 07/15/17 14:44> Objective - Vital Signs/Intake and Output Vital Signs (last 24 hours): Temp Pulse Resp BP Pulse Ox 99.1 F 84 18 116/78 97 07/15/17 08:17 07/15/17 09:01 07/15/17 08:17 07/15/17 09:01 07/15/17 08:17 Intake and Output: 07/15/17 07/15/17 06:59 18:59 Intake Total 660 Output Total 2150 Balance -1490 - Medications Medications: Current Medications Acetaminophen (Tylenol 325mg Tab) 650 mg PO Q6H PRN PRN Reason: Fever >100.4 F Last Admin: 07/14/17 22:46 Dose: 650 mg Docusate Sodium (Colace) 100 mg PO BID [facility] Last Admin: 07/15/17 09:01 Dose: 100 mg Enoxaparin Sodium (Lovenox) 40 mg SC Q24H [facility] PRN Reason: Protocol Last Admin: 07/14/17 17:23 Dose: 40 mg Hydromorphone HCl (Dilaudid) 0.5 mg IVP Q4H PRN PRN Reason: Pain, severe (8-10) Last Admin: 07/15/17 00:20 Dose: 0.5 mg Metoprolol Tartrate (Lopressor) 25 mg PO BID [facility] Last Admin: 07/15/17 09:01 Dose: 25 mg Multivitamins/Minerals (Therapeutic-M Tab) 1 tab PO DAILY [facility] Last Admin: 07/15/17 09:02 Dose: 1 tab Oxycodone/Acetaminophen (Percocet 5/325 Mg Tab) 2 tab PO Q4 PRN PRN Reason: Pain, moderate (4-7) Stop: 07/16/17 17:44 Last Admin: 07/14/17 22:00 Dose: 2 tab Pantoprazole Sodium (Protonix Ec Tab) 40 mg PO 0600 [facility] - Labs Labs: 07/15/17 07:00 07/15/17 07:00 PT 13.9 SECONDS (9.4-12.5) H 07/13/17 11:00 INR 1.20 (0.93-1.08) H 07/13/17 11:00 APTT 29.0 Seconds (25.1-36.5) 07/13/17 11:00 Attending/Attestation - Attestation I have personally seen and examined this patient.: Yes I have fully participated in the care of the patient.: Yes I have reviewed all pertinent clinical information, including history, physical exam and plan: Yes Notes (Text): 07/15/17 14:43 attending note; Patient seen and examined with the resident. Patient is a 47-year-old male admitted after a mechanical fall and left femoral neck fracture. status post ORIF. Monitor closely. had an episode of fever resolved. PT evaluation appreciated. Rehabilitation recommended. Case discussed with [facility] for rehabilitation placement. Pending authorization. Continue DVT prophylaxis. Continue incentive spirometry. Continue physical therapy. The diagnosis and treatment plan discussed with patient in detail with Micronesian- speaking nurse.
--- NOTE | 2017-07-14 23:26 | CARD ---
APPROVED REPORT EKG Measurement Heart [id number] <Conclusion> Normal sinus rhythm Normal ECG
[2017-07-15] MEDS: HYDROmorphone 0.5 mg/0.5 ml ISec IVP PRN ×2 (00:20→16:11)
[2017-07-15 08:10] LABS: HEMOGLOBIN 9.5 g/dL (14.0-18.0); MEAN CELL VOLUME 83.1 fl (80.0-105.0); MEAN CORPUSCULAR HEMOGLOBIN 26.8 pg (25.0-35.0); MEAN CORPUSCULAR HGB CONC 32.3 g/dl (31.0-37.0); MEAN PLATELET VOLUME 10.8 fl (7.0-11.0); RBC 3.54 10^6/uL (3.5-6.1); WHITE BLOOD COUNT 9.6 10^3/ul (4.5-11.0)
[2017-07-15 08:17] VITALS: BP 116/78; RESP 18; O2SAT 97
[2017-07-15 08:36] LABS: BLOOD UREA NITROGEN 13 mg/dL (7-21); CALCIUM 8.4 mg/dL (8.4-10.5); GFR AFRICAN-AMERICAN > 60; GFR NON-AFRICAN AMERICAN > 60
[2017-07-15] MEDS: Multivitamin With Minerals Tab PO SCH (09:02)
[2017-07-15] MEDS ORDERED: Potassium Chloride 20 mEq ER Tab PO STA (09:22)
[2017-07-15] MEDS ORDERED: Vancomycin 1gm in NS 250ml 1 GM/250 ML BAG IVPB SCH (09:30)
--- NOTE | 2017-07-15 10:23 | RAD ---
HISTORY: post op fever COMPARISON: 07/11/2017. FINDINGS: LUNGS: No active pulmonary disease. PLEURA: No significant pleural effusion identified, no pneumothorax apparent. CARDIOVASCULAR: No radiographic findings to suggest acute or significant cardiovascular disease. OSSEOUS STRUCTURES: No significant abnormalities. VISUALIZED UPPER ABDOMEN: Normal. OTHER FINDINGS: None. IMPRESSION: No active disease. No significant interval change compared to the prior examination(s).
[2017-07-15] MEDS ORDERED: Piperacillin/Tazobact 3.375 gm 100 ML IVPB SCH (12:00)
--- NOTE | 2017-07-15 12:42 | CP.PCM.DIS ---
<Tatyana Hill - Last Filed: 07/15/17 15:58> Provider - Provider Date of Admission: 07/11/17 20:52 Attending physician: Karl Winchester MD Primary care physician: NO PRIMARY CARE PROVIDER Consults: Ortho: Dr. Dominique Time Spent in preparation of Discharge (in minutes): 45 Hospital Course - Lab Results Lab Results: Most Recent Lab Values WBC 9.6 10^3/ul (4.5-11.0) 07/15/17 07:00 RBC 3.54 10^6/uL (3.5-6.1) 07/15/17 07:00 Hgb 9.5 g/dL (14.0-18.0) L 07/15/17 07:00 Hct 29.4 % (42.0-52.0) L 07/15/17 07:00 MCV 83.1 fl (80.0-105.0) 07/15/17 07:00 MCH 26.8 pg (25.0-35.0) 07/15/17 07:00 MCHC 32.3 g/dl (31.0-37.0) 07/15/17 07:00 RDW 13.0 % (11.5-14.5) 07/15/17 07:00 Plt Count 178 10^3/uL (120.0-450.0) 07/15/17 07:00 MPV 10.8 fl (7.0-11.0) 07/15/17 07:00 Gran % 84.0 % (50.0-68.0) H 07/14/17 07:00 Lymph % (Auto) 4.4 % (22.0-35.0) L 07/14/17 07:00 [place] % (Auto) 11.6 % (1.0-6.0) H 07/14/17 07:00 Eos % (Auto) 0.0 % (1.5-5.0) L 07/14/17 07:00 Baso % (Auto) 0.0 % (0.0-3.0) 07/14/17 07:00 Gran # 9.65 (1.4-6.5) H 07/14/17 07:00 Lymph # (Auto) 0.5 (1.2-3.4) L 07/14/17 07:00 [place] # (Auto) 1.3 (0.1-0.6) H 07/14/17 07:00 Eos # (Auto) 0.0 (0.0-0.7) 07/14/17 07:00 Baso # (Auto) 0.00 K/mm3 (0.0-2.0) 07/14/17 07:00 Neutrophils % (Manual) 85 % (50.0-70.0) H 07/14/17 07:00 Band Neutrophils % 3 % (0-2) H 07/14/17 07:00 Lymphocytes % (Manual) 6 % (22.0-35.0) L 07/14/17 07:00 Monocytes % (Manual) 6 % (1.0-6.0) 07/14/17 07:00 Platelet Evaluation Normal (NORMAL) 07/14/17 07:00 Hypochromasia Slight 07/14/17 07:00 Anisocytosis (manual) Slight 07/14/17 07:00 PT 13.9 SECONDS (9.4-12.5) H 07/13/17 11:00 INR 1.20 (0.93-1.08) H 07/13/17 11:00 APTT 29.0 Seconds (25.1-36.5) 07/13/17 11:00 Sodium 138 mmol/L (132-148) 07/15/17 07:00 Potassium 3.2 mmol/L (3.6-5.0) L 07/15/17 07:00 Chloride 102 mmol/L (98-107) 07/15/17 07:00 Carbon Dioxide 28 mmol/L (21-33) 07/15/17 07:00 Anion Gap 12 (10-20) 07/15/17 07:00 BUN 13 mg/dL (7-21) 07/15/17 07:00 Creatinine 0.9 mg/dl (0.8-1.5) 07/15/17 07:00 Est GFR ( Amer) > 60 07/15/17 07:00 Est GFR (Non-Af Amer) > 60 07/15/17 07:00 Random Glucose 105 mg/dL (70-110) 07/15/17 07:00 Hemoglobin A1c 5.8 % (4.2-6.5) 07/12/17 06:40 Calcium 8.4 mg/dL (8.4-10.5) 07/15/17 07:00 Total Bilirubin 0.8 mg/dL (0.2-1.3) 07/14/17 07:00 AST 56 U/L (17-59) 07/14/17 07:00 ALT 44 U/L (7-56) 07/14/17 07:00 Alkaline Phosphatase 49 U/L (38-126) 07/14/17 07:00 Total Protein 5.8 g/dL (5.8-8.3) 07/14/17 07:00 Albumin 3.2 g/dL (3.0-4.8) 07/14/17 07:00 Globulin 2.6 gm/dL 07/14/17 07:00 Albumin/Globulin Ratio 1.3 (1.1-1.8) 07/14/17 07:00 Triglycerides 86 mg/dL (35-160) 07/12/17 06:40 Cholesterol 195 mg/dL (130-200) 07/12/17 06:40 LDL Cholesterol Direct 146 mg/dL (0-129) H 07/12/17 06:40 HDL Cholesterol 43 mg/dL (29-60) 07/12/17 06:40 Thyroxine (T4) 7.0 ug/dL (5.5-11.0) 07/12/17 06:40 TSH 3rd Generation 1.02 mIU/mL (0.46-4.68) 07/12/17 06:40 Urine Color Yellow (YELLOW) 07/11/17 21:55 Urine Appearance Clear (CLEAR) 07/11/17 21:55 Urine pH 6.0 (4.7-8.0) 07/11/17 21:55 Ur Specific [place] 1.025 (1.005-1.035) 07/11/17 21:55 Urine Protein Negative mg/dL (<30 mg/dL) 07/11/17 21:55 Urine Glucose (UA) Negative mg/dL (NEGATIVE) 07/11/17 21:55 Urine Ketones 40 mg/dL (NEGATIVE) H 07/11/17 21:55 Urine Blood Negative (NEGATIVE) 07/11/17 21:55 Urine Nitrate Negative (NEGATIVE) 07/11/17 21:55 Urine Bilirubin Negative (NEGATIVE) 02/06/18 21:55 Urine Urobilinogen 0.2 E.U./dL (<1 E.U./dL) 07/11/17 21:55 Ur Leukocyte Esterase Negative Cal/uL (NEGATIVE) 07/11/17 21:55 Influenza Typ A,B (EIA) Negative for flu a/b (NEGATIVE) 07/15/17 10:50 Blood Type B POSITIVE 07/11/17 21:15 Blood Type Confirm B POSITIVE 07/12/17 06:40 Antibody Screen Negative 07/11/17 21:15 Crossmatch See Detail 07/11/17 21:15 BBK History Checked No verified bt 07/11/17 21:15 - Hospital Course Hospital Course: 47 yo male with no significant past medical history who presents s/p fall at work. Patient states he was at work on a ladder which was 36 inches high. Patient states that he was climbing the ladder and as he went to take anther step, the ladder base shifted and both he and the ladder tipped over. He states he landed on his left side while holding onto the ladder on a plywood surface with stacked 4x4 wooden slabs. A co-worker immediately ran to help him. Pt was not able to move his leg well and could not weight-bear when he tried to stand up. Patient denied hitting his hit, denied any LOC, vertigo, syncope or any other complaints at this time. Hip/pelvic XR: left femoral neck fracture. L femoral XR: Subcapital fracture left femurCT hip showed displaced angulated subcapital hip fracture on the left. L hip fracture s/p mechanical Fall tolerated procedure by Dr. Dominique, Ortho, no precautions as it was anterior approach technique. Pt was encouraged ambulation and incentive spirometer. Pt tolerated PT. Analgesics provided for pain control. Pt was tolerating oral intake, ambulating, voiding regularly and having regular bowel movements. Pt expereinced post op fevers, as per Orth, likely related to decreased ambulation. As per Ortho, Dr. Dominique,recommended no abx at this time. Recommended acute rehab and further physical therapy. Patient should be anticoagulated for at least 2 weeks post-op and followup with PMD and surgeon within 2 weeks of discharge. Pt is to be transferred to TCU with further dispo to be placement at [facility]. Discharge Exam - Head Exam Head Exam: NORMAL INSPECTION - Eye Exam Eye Exam: EOMI, Normal appearance, PERRL Pupil Exam: NORMAL ACCOMODATION, PERRL - ENT Exam ENT Exam: Mucous Membranes Moist - Respiratory Exam Respiratory Exam: Clear to PA & Lateral, NORMAL BREATHING PATTERN, UNREMARKABLE - GI/Abdominal Exam GI & Abdominal Exam: Normal Bowel Sounds - Extremities Exam Extremities exam: normal inspection - Neurological Exam Neurological exam: Alert, CN II-XII Intact, Normal Gait, Oriented x3, Reflexes Normal - Psychiatric Exam Psychiatric exam: Normal Affect, Normal Mood - Skin Skin Exam: Dry, Intact, Normal Color, Warm Discharge Plan - Follow Up Plan Condition: STABLE Disposition: REHAB FACILITY/REHAB UNIT Instructions: Hip Fracture (GEN), Total Hip Replacement (DC) Additional Instructions: 1. Pt is to be DC to TCU 2. Pt is to continue current medical management as ordered 3. Pt is encouraged to utilize incentive spirometry as educated 4. Pt is to continue with physical therapy Referrals: PCP,ISMAEL [Primary Care Provider] - <Karl Winchester - Last Filed: 07/15/17 16:51> Provider - Provider Date of Admission: 07/11/17 20:52 Attending physician: Karl Winchester MD Primary care physician: ISMAEL PRIMARY CARE PROVIDER Hospital Course - Lab Results Lab Results: Most Recent Lab Values WBC 9.6 10^3/ul (4.5-11.0) 07/15/17 07:00 RBC 3.54 10^6/uL (3.5-6.1) 07/15/17 07:00 Hgb 9.5 g/dL (14.0-18.0) L 07/15/17 07:00 Hct 29.4 % (42.0-52.0) L 07/15/17 07:00 MCV 83.1 fl (80.0-105.0) 07/15/17 07:00 MCH 26.8 pg (25.0-35.0) 07/15/17 07:00 MCHC 32.3 g/dl (31.0-37.0) 07/15/17 07:00 RDW 13.0 % (11.5-14.5) 07/15/17 07:00 Plt Count 178 10^3/uL (120.0-450.0) 07/15/17 07:00 MPV 10.8 fl (7.0-11.0) 07/15/17 07:00 Gran % 84.0 % (50.0-68.0) H 07/14/17 07:00 Lymph % (Auto) 4.4 % (22.0-35.0) L 07/14/17 07:00 [place] % (Auto) 11.6 % (1.0-6.0) H 07/14/17 07:00 Eos % (Auto) 0.0 % (1.5-5.0) L 07/14/17 07:00 Baso % (Auto) 0.0 % (0.0-3.0) 07/14/17 07:00 Gran # 9.65 (1.4-6.5) H 07/14/17 07:00 Lymph # (Auto) 0.5 (1.2-3.4) L 07/14/17 07:00 [place] # (Auto) 1.3 (0.1-0.6) H 07/14/17 07:00 Eos # (Auto) 0.0 (0.0-0.7) 07/14/17 07:00 Baso # (Auto) 0.00 K/mm3 (0.0-2.0) 07/14/17 07:00 Neutrophils % (Manual) 85 % (50.0-70.0) H 07/14/17 07:00 Band Neutrophils % 3 % (0-2) H 07/14/17 07:00 Lymphocytes % (Manual) 6 % (22.0-35.0) L 07/14/17 07:00 Monocytes % (Manual) 6 % (1.0-6.0) 07/14/17 07:00 Platelet Evaluation Normal (NORMAL) 07/14/17 07:00 Hypochromasia Slight 07/14/17 07:00 Anisocytosis (manual) Slight 07/14/17 07:00 PT 13.9 SECONDS (9.4-12.5) H 07/13/17 11:00 INR 1.20 (0.93-1.08) H 07/13/17 11:00 APTT 29.0 Seconds (25.1-36.5) 07/13/17 11:00 Sodium 138 mmol/L (132-148) 07/15/17 07:00 Potassium 3.2 mmol/L (3.6-5.0) L 07/15/17 07:00 Chloride 102 mmol/L (98-107) 07/15/17 07:00 Carbon Dioxide 28 mmol/L (21-33) 07/15/17 07:00 Anion Gap 12 (10-20) 07/15/17 07:00 BUN 13 mg/dL (7-21) 07/15/17 07:00 Creatinine 0.9 mg/dl (0.8-1.5) 07/15/17 07:00 Est GFR ( Amer) > 60 07/15/17 07:00 Est GFR (Non-Af Amer) > 60 07/15/17 07:00 Random Glucose 105 mg/dL (70-110) 07/15/17 07:00 Hemoglobin A1c 5.8 % (4.2-6.5) 07/12/17 06:40 Calcium 8.4 mg/dL (8.4-10.5) 07/15/17 07:00 Total Bilirubin 0.8 mg/dL (0.2-1.3) 07/14/17 07:00 AST 56 U/L (17-59) 07/14/17 07:00 ALT 44 U/L (7-56) 07/14/17 07:00 Alkaline Phosphatase 49 U/L (38-126) 07/14/17 07:00 Total Protein 5.8 g/dL (5.8-8.3) 07/14/17 07:00 Albumin 3.2 g/dL (3.0-4.8) 07/14/17 07:00 Globulin 2.6 gm/dL 07/14/17 07:00 Albumin/Globulin Ratio 1.3 (1.1-1.8) 07/14/17 07:00 Triglycerides 86 mg/dL (35-160) 07/12/17 06:40 Cholesterol 195 mg/dL (130-200) 07/12/17 06:40 LDL Cholesterol Direct 146 mg/dL (0-129) H 07/12/17 06:40 HDL Cholesterol 43 mg/dL (29-60) 07/12/17 06:40 Thyroxine (T4) 7.0 ug/dL (5.5-11.0) 07/12/17 06:40 TSH 3rd Generation 1.02 mIU/mL (0.46-4.68) 07/12/17 06:40 Urine Color Yellow (YELLOW) 07/11/17 21:55 Urine Appearance Clear (CLEAR) 07/11/17 21:55 Urine pH 6.0 (4.7-8.0) 07/11/17 21:55 Ur Specific [place] 1.025 (1.005-1.035) 07/11/17 21:55 Urine Protein Negative mg/dL (<30 mg/dL) 07/11/17 21:55 Urine Glucose (UA) Negative mg/dL (NEGATIVE) 07/11/17 21:55 Urine Ketones 40 mg/dL (NEGATIVE) H 07/11/17 21:55 Urine Blood Negative (NEGATIVE) 07/11/17 21:55 Urine Nitrate Negative (NEGATIVE) 07/11/17 21:55 Urine Bilirubin Negative (NEGATIVE) 07/11/17 21:55 Urine Urobilinogen 0.2 E.U./dL (<1 E.U./dL) 07/11/17 21:55 Ur Leukocyte Esterase Negative Cal/uL (NEGATIVE) 07/11/17 21:55 Influenza Typ A,B (EIA) Negative for flu a/b (NEGATIVE) 07/15/17 10:50 Blood Type B POSITIVE 07/11/17 21:15 Blood Type Confirm B POSITIVE 07/12/17 06:40 Antibody Screen Negative 07/11/17 21:15 Crossmatch See Detail 07/11/17 21:15 BBK History Checked No verified bt 07/11/17 21:15 Attending/Attestation - Attestation I have personally seen and examined this patient.: Yes I have fully participated in the care of the patient.: Yes I have reviewed all pertinent clinical information, including history, physical exam and plan: Yes Notes (Text): 07/15/17 16:49 attending note; Patient seen and examined with the resident. Patient is a 47-year-old male admitted after a mechanical fall and left femoral neck fracture. status post ORIF.poD #2. had an episode of fever resolved. case discussed with orthopedics in detail. suggested aggressive physical therapy/incentive spirometry. Case discussed with corrections caseworker for rehabilitation placement. patient will be transferred to TCU. Continue DVT prophylaxis. Continue incentive spirometry. Continue physical therapy. 07/15/17 16:51
[2017-07-15 16:12] VITALS: TEMP 102
[2017-07-15 16:54] VITALS: PULSE 90
[2017-07-16] MEDS ORDERED: Pantoprazole 40 mg EC Tab PO SCH (06:00)
--- NOTE | 2017-07-17 05:12 | OP ---
PROCEDURE DATE: 07/13/2017 PREOPERATIVE DIAGNOSES: 1. Displaced Garden IV subcapital left femur fracture. 2. Preexisting osteoarthritis of the left hip. OPERATIVE FINDINGS: 1. Displaced Garden IV subcapital left femur fracture. 2. Preexisting osteoarthritis of the left hip. 3. Contracture of the iliopsoas tendon. POSTOPERATIVE DIAGNOSES: 1. Displaced Garden IV subcapital left femur fracture. 2. Preexisting osteoarthritis of the left hip. 3. Contracture of the iliopsoas tendon. SURGEON: Gómez Garcia MD. INFECTION CONTROL COORDINATOR: Heide Hampton PA-C. SECOND PLAY LEADER: Kamila Wei, certified registered nursing psychology assistant (both essential for the completion of the operative goal and essential for assistantship at every step of the procedure). OPERATIVE PROCEDURES: 1. Left total hip replacement, anterior approach. 2. Femoral neck osteotomy. 3. Release of the iliopsoas tendon. 4. Autograft bone graft for the acetabulum. 5. Positioning of fluoroscope interpretation of video images. SPECIMENS REMOVED: Femoral head, neck, and synovium. BLOOD LOSS: Approximately 200 mL. BLOOD PRODUCTS GIVEN: No blood. No drains. POSTOPERATIVE CONDITION: Good and stable. INCISION TIME: 1440. TIME IN THE ROOM: 1340. It should be noted that intraoperative and preoperative x-rays for planning of the femoral neck osteotomy and for positioning of the components for leg length equality were accomplished under the surgeon's direction. The fluoroscope was positioned, video images were generated, and therapeutic decisions were made therefrom. It should be noted that the preoperative and intraoperative calculation of femoral neck osteotomy, the execution of femoral neck osteotomy are so complex as to deserve a separate coding modifier. OPERATIVE INDICATIONS: The patient is a 47-year-old gentleman who is employed by a [employer]. The patient fell off a ladder while at work, sustaining injury to the left hip. The patient presented to the Emergency Room at [facility], was stabilized and admitted. Medical stabilization and consultation was accomplished. Medical clearance was obtained. Pros, cons, risks, and benefits of hip replacement arthroplasty were discussed at length with the patient and his , Melani. This was accomplished with the in-hospital interpretation service, which was called on demand and the name of the per diem interpreter was recorded in the record as well as the identification number. The pros, cons, risks, and benefits of hip replacement arthroplasty for this procedure were discussed. The concept of the blood supply to the femoral neck was discussed at length and in very simple layman's terms. The concept that the femoral head and neck was completely displaced and often spun as concorde with the Garden IV subcapital classification. The concept of open reduction and pinning was discussed but rejected by the patient after being informed that the femoral head may and he may need a hip replacement, subsequent. The possibility of mechanical failure, infection, thromboembolic disease, secondary or tertiary surgery was discussed. The informed consent was obtained through the culturally-competent power barker. The concept of replacement arthroplasty was discussed and the patient demands for replacement arthroplasty and his , after the options of open reduction and internal fixation, benign neglect are discussed at length. The patient can no longer stand the discomfort and wishes the surgery to be accomplished. The possibility of mechanical failure, dislocation, infection, thromboembolic disease, nerve injury, leg length inequality, secondary or tertiary surgery was discussed. The pros, cons, risks, and benefits of hip replacement arthroplasty were thoroughly discussed for the Garden IV subcapital fracture with preexisting osteoarthritis. The possibility of mechanical failure, infection, thromboembolic disease, secondary or tertiary surgery was discussed. Possibility of leg length inequality, nerve injury, recurrent dislocation, etc., was discussed. The patient wished the surgery to be accomplished. DESCRIPTION OF THE PROCEDURE: After having obtained informed consent, in the above fashion, after the satisfactory induction of the spinal and general anesthesia by Dr. Loya, and with the completion of the anesthesia by Dr. Oneill, after having identified the side, site, and procedure and a critical pause/timeout, the patient was identified as [facility], in the supine position with all bony prominences well padded. The patient's left lower extremity was positioned in the AMIS traction positioner. The right lower extremity was placed in the well-leg traction, abducted to allow visualization. This having been accomplished, the preoperative and intraoperative planning is again accomplished for the femoral neck osteotomy. Position of the lesser trochanter with respect to the inferior ischial ramus was identified and this having been accomplished, after sterilely prepping and draping, an incision was incised, this accomplished three fingerbreadths posterior to the ASIS, in line and superficial to the tensor fascia femoris. The incision was carried out, approximately 4-1/2-inch incision, 1 fingerbreadth distal to the ASIS and 4 to 5 fingerbreadths distally; the incision was carried out through the skin and subcutaneous tissue. The Bovie was used to divide the fascia. The fascia was grasped with the Allis clamp and the muscle was taken down to the investing fascia. Blunt dissection continued to develop that plane. The Adson-Liz retractor was placed vertically to expose the rectus femoris and the fascia at the posterior aspect of the rectus femoris. The blunt dissection continued to develop that plane. At this point in time, the posterior aspect of the rectus femoris was developed and the Adson-Liz retractor was placed deep horizontally to expose the underlying fascia. The underlying fascia was identified and was carefully divided, cell layer by cell layer. With the fascia divided, the lateral femoral circumflex vessels in the anterior branch and the lateral femoral circumflex vessels were identified. The vessels having been identified, the vessels were grasped with a tonsil clamp. The vessels were divided. They were controlled with suture ligature and Aquamantys. At this point in time, the fat on the anterior aspect of the capsule was identified and the fat was removed using electrocautery. This having been accomplished, the iliocapsularis muscle was identified and the Liz retractor was adjusted. At this point in time, with the lower extremity in internal rotation to 15 degrees, the retractor was placed to protect the gluteus tendons. The Cobra retractor was placed and at this point in time, a capsulotomy was begun laterally at the border of the acetabulum. The leg was rotated on to external rotation and it continued distally. The intertrochanteric tubercle was identified. The capsular flap was brought laterally again and the fracture site was identified, the vessels having been controlled with the Aquamantys. The capsule was tagged. The capsulotomy having been accomplished, the capsular tissue was tagged and the femoral neck fracture was identified. Again, preoperative planning and intraoperative planning for the osteotomy was extensive because of the nature of the subcapital fracture. Because of the planning preoperatively and intraoperatively for the ankle, the osteotomy and the depth of the osteotomy and the virtual planning of the same, both on CT scan and intraoperatively with the fluoroscope, the femoral neck osteotomy was documented as an additional billing code. The complexity of the procedure because of the fracture in a young patient, femoral neck osteotomy having been preoperatively prepared in virtually both on the computer and intraoperatively with fluoroscopy was noted, this was essential. This having been accomplished, the femoral neck osteotomy was accomplished. At this point in time, the head was removed from the acetabulum. There were found to be arthritic changes in the acetabulum with large osteophyte formation at the borders of the acetabulum and deep in the acetabulum medially. It should be noted that this was not recognized on the official reading of the preoperative x-rays. The head having been removed, the femoral head was found to measure approximately 48 to 50 mm in three planes with caliper. Reaming commenced with the reamer directed posteriorly and medially and in the ultimate positioning of the cup in abduction and anteversion. Reaming was accomplished. The reamings were denuded of articular cartilage to be used as later bone grafting. The reaming was accomplished in approximately 45 degrees of abduction and 15 degrees of anteversion. The trial was impacted and the trial was found to be acceptable in the acetabulum. At this point in time, further reaming to 52 mm was carried out, again at approximately 45 degrees of abduction and 15 degrees of anteversion. This having been accomplished, autograft bone grafting from the reaming was denuded of articular cartilage, which was accomplished through the acetabulum. This having been accomplished, the Medacta cup was impacted and set. The abduction was approximately 45 to 48 degrees with 15 degrees of anteversion and found to be acceptable. Autograft bone grafting had been accomplished. Osteophytes were removed. The transverse acetabular ligament was divided. With the femur now in external rotation, there was found to be a great deal of contracture in this young 47-year-old gentleman, stabilizing the femur, extensive releases were accomplished. The pubofemoral ligament was accomplished with the lower extremity rotated to 95 degrees of external rotation. The bone hook was placed to mobilize the proximal femur. The iliofemoral ligament was identified and was carefully incised. Hemostasis controlled with the Aquamantys. Again, the position of the osteotomy having been found to be acceptable, the cup position having been found to be acceptable, attention was now turned to the femoral release. The patient had exhibited some marked contracture with a strong iliopsoas [id number] complex. The iliopsoas tendon was released at this point in time. The iliopsoas tendon having been released, the femur continued to externally rotate, the pubofemoral ligament was released from the calcar. The pubofemoral release having been accomplished, the iliopsoas tendon was released. The iliopsoas tendon release was accomplished with great care to protect injury to the femoral nerve. Ischiofemoral ligament was divided, the piriformis fossa was identified and the tendinous structures were released from there. For stability, the obturator externus was left intact. The release of the ischiofemoral ligament was accomplished, pubofemoral ligament, and the iliofemoral ligament. The three ligament releases were necessary because of the patient's age and excellent tissue quality. At this point, the femur was delivered into the wound with the help of the retractors. The bridge of bone between the neck and the trochanter was removed using the bur and the box chisel. At this point in time, the canal was found using the bur and the rasp. Sequential reaming was carried out to a #3 femoral component. Trial was accomplished. The 3.5-mm head was employed. The outer bearing was 52 mm, this was reduced and found to be stable in all planes with flexion, extension, and rotation. There was no push-pull. At this point in time, the broach was removed. Verification of position having been accomplished on AP and image intensification views. The fluoroscope was positioned to the surgeon's direction and video images were generated. Therapeutic decisions were made therefrom. At this point in time, the appropriate Medacta #3 femoral component was introduced with a standard neck plus 3.5 head and 52-mm outer bearing. The hip was reduced, found to be stable in all planes, external rotation and internal rotation. No push-pull, no instability. Intraoperative fluoroscopy was again accomplished which revealed acceptable position of the construct. The wound was thoroughly irrigated, FloSeal was introduced, blood loss approximately 200 mL. The fascia of the tensor fascia femoris was repaired and great care was taken to avoid injury to the lateral femoral cutaneous nerve, 0 Quill, followed by 0 Quill and Vicryl. Igor for the skin. Compression dressing was applied. Unfortunately, this hip replacement is as a directing cause as a result of a work-related injury when this patient fell from a ladder. Worker's Compensation clearance and authorization had been obtained and again the pros, cons, risks, and benefits of various treatment options in this young gentleman had been discussed. The patient is stable. Leg lengths are acceptable when the patient is transferred from the operative table to the stretcher. Postoperative x-ray revealed acceptable position of the construct. Gómez Garcia MD
--- NOTE | 2017-07-17 08:08 | OP ---
PROCEDURE DATE: 07/13/2017 PREOPERATIVE DIAGNOSES: 1. Displaced Garden IV subcapital left femur fracture. 2. Preexisting osteoarthritis on left hip. POSTOPERATIVE DIAGNOSES: 1. Garden IV subcapital fracture of the left hip, posttraumatic. 2. Preexisting osteoarthritis. OPERATIVE PROCEDURES: 1. Left total hip replacement arthroplasty, anterior approach mini-incision. 2. Femoral neck osteotomy performed implant both intraoperatively and preoperatively demanding a secondary code. 3. Release of iliopsoas tendon. 4. Autograft bone grafting to both the femur and the acetabulum. 5. Positioning of fluoroscope interpretation and video images. SURGEON: Gómez Garcia MD. RAIL MANAGER: Heide Hampton PA-C. SECOND YARN SPINNER: CJ Joseph. Both these assistants were necessary to the furtherance of the procedure and the ultimate component position and implantation. It should be noted that this injury importantly is directly related to the work-related injury that this patient had sustained 07/11/2017 as an [place] the [employer] [place] The injury and the surgery therefore are directly and causally related to the work-related injury and authorization had been obtained as a worker's compensation injury. TYPE OF ANESTHESIA: Spinal and general anesthesia. ANESTHESIA ADMINISTERED BY: Dr. Marcell Loya and Dr. Aaliyah Oneill. COMPLICATIONS: No complications. DRAINS: No drains. ESTIMATED BLOOD LOSS: Approximately 200 mL. OPERATIVE INDICATION: José Sauer is a 47-year-old gentleman who is employed by [employer]. The patient was at work when he sustained a fall from a ladder. The patient presented to the Emergency Room at [facility]. The patient was stabilized, admitted. CAT scan was obtained. Medical stabilization was accomplished and the patient was taken to surgery, 07/13/2017. Pros, cons, risks and benefits of surgical approach to the left hip fracture were discussed at length with the patient and his Irina. This was accomplished with an culturally component explosive operator fuse in the on-demand translation system by the explosive operator fuse whose name and ID number is documented. The options including but out open reduction and internal fixation, bipolar replacement and total replacement were discussed. The concept that the implants applied at the femoral head is destroyed at the time of the fracture in a patient whose age is discussed, the concept of avascular necrosis was discussed. The concept that he is a working man and we would like to get him back to work as soon as possible was discussed. The possibility of mechanical failure, infection, leg length inequality, thromboembolic disease, infection, secondary or tertiary surgery was discussed. The patient and his agreed to total hip replacement arthroplasty as the patient did have an element of preexisting osteoarthritic change and the total hip resolved after a fracture of this type is repaired with bipolar arthroplasty is clearly demonstrated in the literature. DESCRIPTION OF PROCEDURE: After having obtained informed consent, after the satisfactory induction of spinal and general anesthesia by Dr. Loya, after having identified side, site and procedure and a critical pause/time-out, the patient identified as José Sauer in the supine position, all bony prominences were well-padded. The patient's left lower extremity was placed in the [facility] retraction positioner. The two turns of traction were applied. All bony prominences were well-padded and the left lower extremity was prepped and free draped in the usual fashion for lower extremity hip replacement surgery, mini-incision anterior approach. An incision was described one fingerbreadth distal to the ASIS and four fingerbreadths distal to that. Superficial to the tensor fascia femoris muscle, an incision was described three fingerbreadths posterior to the ASIS again superficial to the tensor fascia femoris. The skin incision was carried down through the skin and subcutaneous tissue. Hemostasis was controlled with the Aquamantys. The fascia superficial to the tensor fascia femoris was divided. The tensor fascia femoris muscle was cut and the plane was developed. The modified Saw-Liz Medacta retractor was placed. The fascia at the posterior aspect of the rectus femoris was developed and hemostasis controlled with the Aquamantys. The Weitlaner retractor was placed distally deeper and horizontally. At this point in time, the reflected head of rectus femoris was identified. The fat superficial to that tendon was excised. The reflected head of rectus femoris was released. The deep fascial layer was released exposing the lateral femoral circumflex vessels and the anterior branch. Using control with the Aquamantys and also controlled with ligature. The vessels were divided and at this point in time, fat on the anterior aspect of the capsule was removed. The anterior capsulotomy was accomplished first with the lower extremity in internal rotation. The capsule was incised and the capsulotomy was carried down to the area of the intertrochanteric line. The intertrochanteric tubercle was identified and then the capsule was elevated intact. This was carried back all the way to expose the neck. At this point in time, the Medacta retractors were placed. The deep Charnley retractor was placed and the femoral neck osteotomy was accomplished. It should be noted that preoperative planning was carried out for the level of the osteotomy and an intraoperative virtual planning was carried out. This was critical. The napkin ring of bone was removed and at this point in time, the femoral head was identified, impaled with a cork screw and the head was removed. The level of the femoral neck osteotomy was found to be acceptable. This having been accomplished, there was evidence of capsular contracture and the stigmata of arthritic change with osteophytes in the acetabulum. This having been accomplished, the labrum was excised. A portion of the transverse acetabular ligament was excised and arthrotomy and synovectomy was accomplished at this point in time in the hip joint. Arthrotomy and synovectomy was accomplished, the pulvinar was identified and incised in a cross. Hemostasis controlled with the removed. There was found to be evidence of arthritic change in the acetabulum. This having been accomplished, the head was measured and the appropriate cup size was tamped to 52 mm. This having been accomplished, sequential reaming was accomplished in all 3 planes both posteriorly, medially and superiorly for approximately 45 degrees of abduction and 15 degrees of anteversion. Reaming was accomplished, the reamings were denuded of articular cartilage. Arthrotomy of the hip and synovectomy having been accomplished. The reamings were denuded for bone grafting. Trialing is accomplished, found to be acceptable with 52 mm cup. A 52 mm Medacta cup was impacted. Autograft bone grafting to the acetabulum was accomplished. Autograft bone grafting to the acetabulum having been accomplished with the bone graft, the cup was impacted, the cup was found to be stable. Border osteophytes were debrided. Attention was now turned to the femur. There were multiple contractions in the femur including the iliopsoas tendon. With external rotation, the bone hook was used to mobilize the femur. At this point in time, the iliofemoral ligament was divided with the lower extremity externally rotated to approximately to 85 degrees. The pubofemoral ligament was placed on stretch and the pubofemoral ligament was divided. The iliopsoas tendon was identified and it was released. This having been accomplished, the pubofemoral ligament was released. The iliofemoral ligament and the ischiofemoral ligament was released as well at the area in the piriformis fossa. Hemostasis controlled with the Aquamantys and this was a tedious procedure. At this point in time, the femur was mobilized, brought out to approximately 170 degrees of external rotation, and the hip at this point hyperextended. Retractors were placed, the bridge of bone between the neck and the trochanter was removed using the box chisel and the bur. The bur was used to find the canal as the patient has extremely type-A bone. The rasp was introduced and at this point in time, sequential broaching to a #2 femoral component, this found to be acceptable, #2 femoral broach was introduced and trialing was accomplished with a +3.5, 28 mm head and 52 mm outer bearing for the dual mobility construct. The hip was reduced, found to be stable in all planes. The wound was sterilely irrigated. It should be noted that the bone graft have been applied to the acetabulum and bone graft was applied to the femur as well for a tight secure interference fit. A #2 Collarless Medacta stem was introduced with a +3.5 ceramic head and a 52 mm outer bearing. The hip was reduced, found to be stable in all planes. The wound was thoroughly irrigated. Hemostasis was controlled with the Aquanmantys and with the Floseal. Verification of position was offered on AP and rotational image intensification views. The position was found to be excellent. Closure was in layers with 0 Quill for the fascia on the tensor fascia femoris followed by 0 Quill and Vicryl, followed by myra. Compression dressing was applied. Postoperative x-rays revealed excellent position of the construct and the patient's neurocirculatory status was intact on recovery. Gómez Garcia MD
--- NOTE | 2017-07-17 09:56 | PN ---
DATE: 07/15/2017 SUBJECTIVE: The patient denies any chest pain. PHYSICAL EXAMINATION: VITAL SIGNS: Blood pressure 116/78, heart rate 84, temperature 99.1, respirations 18. HEENT: Normocephalic. CHEST: Clear. HEART: S1 and S2 regular. EXTREMITIES: No edema. LABORATORY DATA: Hemoglobin and hematocrit 9.5 and 29.4; white count and platelet count are within normal limit. Today's potassium is 3.2. Yesterday's EKG normal sinus rhythm. ASSESSMENT: 1. Status post total left hip replacement. 2. Hypokalemia. 3. Hypertension. RECOMMENDATIONS: Continue current Lopressor, subcutaneous Lovenox and optimize potassium replacement; patient already received 40 mEq of oral K-Dur. Discontinue telemetry. Delano Raza MD
== END 2017-07-15 17:06 | DRG 470 ==
LOC: ED 16:39 → ERH 20:52 → 5RNO 22:22 → 3RSO 07-13 19:40
PROVIDERS: ADMIT Internal Medicine; ATTEND Internal Medicine
PROC: 0QU707Z Supplement Left Upper Femur with Autologous Tissue Substitute, Open Approach (ICD-10-PCS; 2017-07-13)
PROC: 0SRB0JA Replacement of Left Hip Joint with Synthetic Substitute, Uncemented, Open Approach (ICD-10-PCS; principal; 2017-07-13 13:00)
DX: S72.012A Unspecified intracapsular fracture of left femur, initial encounter for closed fracture (principal); E78.5 Hyperlipidemia, unspecified; E87.6 Hypokalemia; I10 Essential (primary) hypertension; M16.12 Unilateral primary osteoarthritis, left hip; R50.82 Postprocedural fever; W11.XXXA Fall on and from ladder, initial encounter; Y99.0 Civilian activity done for income or pay; Y92.9 Unspecified place or not applicable

== ENCOUNTER 2017-07-15 16:43 | Inpatient (IN) | payer OTHER ==
[2017-07-15] MEDS ORDERED: HYDROmorphone 0.5 mg/0.5 ml ISec IVP PRN (17:23)
[2017-07-15 19:17] VITALS: BMI 28.5
[2017-07-16] MEDS: Oxycodone/Acetaminophen 5/325 mg Tab PO PRN (02:56)
[2017-07-16] MEDS: Enoxaparin 40 mg Syringe SC SCH ×2 (05:26→10:32)
[2017-07-16] MEDS: Pantoprazole 40 mg EC Tab PO SCH (05:26)
--- NOTE | 2017-07-16 08:43 | CP.PCM.HP ---
<Tatyana Hill - Last Filed: 07/16/17 08:40> History of Present Illness - History of Present Illness History of Present Illness: 47 yo male with no significant past medical history who presents s/p fall at work. Patient states he was at work on a ladder which was 36 inches high. Patient states that he was climbing the ladder and as he went to take anther step, the ladder base shifted and both he and the ladder tipped over. He states he landed on his left side while holding onto the ladder on a plywood surface with stacked 4x4 wooden slabs. A co-worker immediately ran to help him. Pt was not able to move his leg well and could not weight-bear when he tried to stand up. Patient denied hitting his hit, denied any LOC, vertigo, syncope or any other complaints at this time. Hip/pelvic XR: left femoral neck fracture. L femoral XR: Subcapital fracture left femurCT hip showed displaced angulated subcapital hip fracture on the left. L hip fracture s/p mechanical Fall tolerated procedure by Dr. Dominique, Ortho, no precautions as it was anterior approach technique. Pt was encouraged ambulation and incentive spirometer. Pt tolerated PT. Analgesics provided for pain control. Pt was tolerating oral intake, ambulating, voiding regularly and having regular bowel movements. Pt expereinced post op fevers, as per Orth, likely related to decreased ambulation. As per Ortho, Dr. Dominique,recommended no abx at this time. Recommended acute rehab and further physical therapy. Patient should be anticoagulated for at least 2 weeks post-op and followup with PMD and surgeon within 2 weeks of discharge. Pt is to be transferred to TCU with further dispo to be placement at [facility]. PMH: none PSH: none Allergies: NKDA Meds: none Social: denies tobacco use, social drinker, denies illicit drug use Family history: none significant Present on Admission - Present on Admission Any Indicators Present on Admission: No Review of Systems - Review of Systems Review of Systems: As per HPI otherwise negative Past Patient History - Infectious Disease Hx of Infectious Diseases: None - Tetanus Immunizations Tetanus Immunization: Unknown - Past Social History Smoking Status: Never Smoked - CARDIAC Hx Hypertension: Yes - PULMONARY Hx Respiratory Disorders: No - NEUROLOGICAL Hx Neurological Disorder: No - HEENT Hx HEENT Problems: No - RENAL Hx Chronic Kidney Disease: No - ENDOCRINE/METABOLIC Hx Endocrine Disorders: No - HEMATOLOGICAL/ONCOLOGICAL Hx Blood Transfusions: No Hx Blood Transfusion Reaction: No - INTEGUMENTARY Hx Dermatological Problems: No - MUSCULOSKELETAL/RHEUMATOLOGICAL Hx Falls: Yes - GASTROINTESTINAL Hx Gastrointestinal Disorders: No - GENITOURINARY/GYNECOLOGICAL Hx Genitourinary Disorders: No Hx Reproductive Disorders: No - PSYCHIATRIC Hx Substance Use: No - SURGICAL HISTORY Hx Surgeries: No - ANESTHESIA Hx Anesthesia Reactions: No Hx Malignant Hyperthermia: No Meds Allergies/Adverse Reactions: Allergies Allergy/AdvReac Type Severity Reaction Status Date / Time No Known Allergies Allergy Verified 07/15/17 17:19 Physical Exam - Constitutional Appears: Well - Head Exam Head Exam: ATRAUMATIC, NORMAL INSPECTION, NORMOCEPHALIC - Eye Exam Eye Exam: EOMI, Normal appearance, PERRL Pupil Exam: NORMAL ACCOMODATION, PERRL - ENT Exam ENT Exam: Mucous Membranes Moist, Normal Exam - Neck Exam Neck exam: Positive for: Normal Inspection - Respiratory Exam Respiratory Exam: Clear to Auscultation Bilateral, NORMAL BREATHING PATTERN - Cardiovascular Exam Cardiovascular Exam: REGULAR RHYTHM, +S1, +S2 - GI/Abdominal Exam GI & Abdominal Exam: Normal Bowel Sounds, Soft. absent: Tenderness - Extremities Exam Additional comments: Dressing to left hip CDI - Neurological Exam Neurological exam: Alert, CN II-XII Intact, Normal Gait (antalgic), Oriented x3 , Reflexes Normal - Psychiatric Exam Psychiatric exam: Normal Affect, Normal Mood - Skin Skin Exam: Dry, Intact, Normal Color, Warm Results - Vital Signs Recent Vital Signs: Last Vital Signs Temp 99.1 F 07/15/17 18:15 Pulse 82 07/15/17 19:19 Resp 14 07/15/17 18:15 BP 128/78 07/15/17 19:19 Pulse Ox Assessment & Plan - Assessment and Plan (Free Text) Assessment: 47 yo male with no significant past medical history who presents s/p fall off ladder at work. Found to have left femoral neck fracture. 1. L hip fracture s/p mechanical Fall - POD 3 L total hip replacement (anterior approach), H/H and vitals are stable - cont to monitor for post-op fevers - encouraged ambulation and incentive spirometer - PT eval recommending acute rehab - CT hip showed displaced angulated subcapital hip fracture on the left - no LOC or trauma to head - hip/pelvic XR: left femoral neck fracture - L femoral XR: Subcapital fracture left femur - CXR unremarkable - Percocet and Dilaudid PRN for pain control - NS@125 - tylenol prn fevers - Lovenox 40mg SC for DVT ppx - Cardiology consulted for pre-op clearance, recs appreciated - ortho consulted, Dr. Garcia ([phone]), follow recs - TSH wnl - LDL slightly elevated - hemoglobin A1C 5.8 - Patient should be anticoagulated for at least 2 weeks post-op and followup with PMD and surgeon within 2 weeks of discharge FU with [facility] Patient was seen, examined and discussed with attending, Dr. Winchester <Karl Winchester - Last Filed: 07/16/17 13:26> Results - Vital Signs Recent Vital Signs: Last Vital Signs Temp 99.1 F 07/15/17 18:15 Pulse 82 07/15/17 19:19 Resp 14 07/15/17 18:15 BP 128/78 07/15/17 19:19 Pulse Ox Attending/Attestation - Attestation I have personally seen and examined this patient.: Yes I have fully participated in the care of the patient.: Yes I have reviewed all pertinent clinical information: Yes Notes (Text): 07/16/17 13:23 attending note; Patient seen and examined with the resident in TCU. Patient is a 47-year-old male admitted after a mechanical fall and left femoral neck fracture. status post ORIF.poD #3. had an episode of fever resolved. case discussed with orthopedics in detail yesterday. suggested aggressive physical therapy/incentive spirometry. possible transfer to acute rehabilitation tomorrow. Continue DVT prophylaxis. Continue incentive spirometry. Continue physical therapy.
[2017-07-16] MEDS: Multivitamin With Minerals Tab PO SCH (10:32)
[2017-07-16] MEDS: POLYETHYLENE GLYCOL 3350 17 GM/Dose PACKET PO SCH ×2 (13:36→17:37)
[2017-07-16 15:30] LABS: BLOOD UREA NITROGEN 14 mg/dL (7-21); CALCIUM 9.1 mg/dL (8.4-10.5); GFR AFRICAN-AMERICAN > 60; GFR NON-AFRICAN AMERICAN > 60
[2017-07-17] MEDS: Oxycodone/Acetaminophen 5/325 mg Tab PO PRN ×2 (00:02→10:42)
[2017-07-17] MEDS: Pantoprazole 40 mg EC Tab PO SCH (05:15)
[2017-07-17] MEDS: Multivitamin With Minerals Tab PO SCH (07:48)
[2017-07-17 08:30] LABS: MEAN CELL VOLUME 82.2 fl (80.0-105.0); MEAN CORPUSCULAR HEMOGLOBIN 27.4 pg (25.0-35.0); MEAN CORPUSCULAR HGB CONC 33.3 g/dl (31.0-37.0); RBC 3.65 10^6/uL (3.5-6.1); RED CELL DISTRIBUTION WIDTH 12.8 % (11.5-14.5); WHITE BLOOD COUNT 10.7 10^3/ul (4.5-11.0)
[2017-07-17 08:49] LABS: ALB/GLOB RATIO 1.2 (1.1-1.8); ALBUMIN 3.6 g/dL (3.0-4.8); ALT/SGPT 146 U/L (7-56); AST/SGOT 116 U/L (17-59); BLOOD UREA NITROGEN 14 mg/dL (7-21); CALCIUM 9.2 mg/dL (8.4-10.5); GFR AFRICAN-AMERICAN > 60; GFR NON-AFRICAN AMERICAN > 60
[2017-07-17] MEDS: POLYETHYLENE GLYCOL 3350 17 GM/Dose PACKET PO SCH ×2 (09:53→17:18)
--- NOTE | 2017-07-17 10:02 | CON ---
DATE: 07/16/2017 CARDIOLOGY CONSULTATION REASON FOR CONSULTATION: History of hypertension and status post left hip replacement. HISTORY OF PRESENT ILLNESS: The patient is 47-year-old male who has a history of hypertension, who sustained a fall from ladder with left hip fracture, underwent total left hip replacement on 07/13 and transferred to TCU. Patient was noted to be hypertensive and was started on Lopressor therapy 25 mg twice a day. No reported arrhythmia or perioperative OH. The patient, at this time, denies any chest pain. SOCIAL HISTORY: Nonsmoker, , lives with his . 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 MEDICATIONS: Colace 100 mg twice a day, Lopressor 25 mg twice a day, Lovenox 40 mg subcutaneously once a day, MiraLax 17 g p.o twice a day, Percocet two tablets q.4 hours p.r.n., Protonix 40 mg p.o. once a day, multivitamin one tablet once a day, Tylenol one tablet q.6 hours p.r.n. REVIEW OF SYSTEMS: No fever or chills. No vomiting or diarrhea. No dizziness or syncope. No palpitation. PHYSICAL EXAMINATION: GENERAL: Patient is a middle-aged male, who does not appear to be in any distress. VITAL SIGNS: Blood pressure 122/78, heart rate 82, temperature 99.1, respirations 14. HEENT: Normocephalic. NECK: No JVD. CHEST: Clear. HEART: S1, S2 regular. ABDOMEN: Soft. EXTREMITIES: No edema. No calf tenderness. LABORATORY DATA: Yesterday's hemoglobin and hematocrit were 9.5 and 29.4. White count and platelet counts were within normal limits. Yesterday's SMA-7 was within normal limits except for potassium of 3.2. ASSESSMENT: 1. Status post total left hip replacement. 2. Hypertension. 3. Hypokalemia. RECOMMENDATIONS: Continue current Lopressor 25 mg twice a day, Lovenox 40 mg subcutaneously once a day, Protonix 40 mg p.o. once a day, Percocet two tablets q.4 hour p.r.n. Obtain BNP today. Delano Raza MD [facility] # [id number]
[2017-07-17] MEDS: Enoxaparin 40 mg Syringe SC SCH (10:03)
--- NOTE | 2017-07-17 13:30 | PN ---
DATE: SUBJECTIVE: The patient denies any chest pain or shortness of breath. PHYSICAL EXAMINATION VITAL SIGNS: Blood pressure 104/72, heart rate 69, temperature 98.1, respirations 16. HEENT: Head normocephalic. CHEST: Clear. HEART: S1 and S2 regular. ABDOMEN: Soft. EXTREMITIES: No edema. LABORATORY DATA: SMA-7: Sodium 139, potassium 4.1, chloride 101, CO2 of 27, glucose 109, BUN 14, creatinine 0.8. AST and ALT are elevated at 116 and 146 respectively. Alkaline phosphatase elevated at 135. Today's hemoglobin and hematocrit 10 and 30. White count and platelet count are within normal limit. ASSESSMENT 1. Status post total right hip replacement. 2. Hypertension. 3. Improved hypokalemia. RECOMMENDATIONS: Continue current Lopressor 25 mg twice a day, Lovenox 40 mg once a day, Protonix 40 mg twice a day, Percocet 2 tablets q. 4 hours p.r.n., multivitamin 1 tablet once a day. Continue current rehab. Delano Raza MD
[2017-07-18 03:08] LABS: BASO # 0.01 K/mm3 (0.0-2.0); BASO % 0.1 % (0.0-3.0); EOS # 0.2 (0.0-0.7); EOS % 1.4 % (1.5-5.0); GRAN # 9.01 (1.4-6.5); GRAN % 78.5 % (50.0-68.0); HEMOGLOBIN 9.9 g/dL (14.0-18.0); LYMPH # 1.3 (1.2-3.4); LYMPH % 11.5 % (22.0-35.0); MEAN CELL VOLUME 83.1 fl (80.0-105.0); MEAN CORPUSCULAR HEMOGLOBIN 27.4 pg (25.0-35.0); MONO % 8.5 % (1.0-6.0); RBC 3.61 10^6/uL (3.5-6.1); RED CELL DISTRIBUTION WIDTH 12.7 % (11.5-14.5); WHITE BLOOD COUNT 11.5 10^3/ul (4.5-11.0)
[2017-07-18] MEDS: Enoxaparin 40 mg Syringe SC SCH (05:53)
[2017-07-18] MEDS: Pantoprazole 40 mg EC Tab PO SCH (05:54)
[2017-07-18] MEDS: Multivitamin With Minerals Tab PO SCH (08:16)
[2017-07-18 08:34] LABS: BASO # 0.02 K/mm3 (0.0-2.0); BASO % 0.2 % (0.0-3.0); EOS # 0.2 (0.0-0.7); EOS % 1.4 % (1.5-5.0); GRAN # 10.59 (1.4-6.5); GRAN % 80.5 % (50.0-68.0); LYMPH # 1.2 (1.2-3.4); LYMPH % 9.4 % (22.0-35.0); MEAN CELL VOLUME 82.5 fl (80.0-105.0); MEAN CORPUSCULAR HEMOGLOBIN 27.4 pg (25.0-35.0); MEAN CORPUSCULAR HGB CONC 33.2 g/dl (31.0-37.0); MONO # 1.1 (0.1-0.6); MONO % 8.5 % (1.0-6.0); RBC 3.65 10^6/uL (3.5-6.1); RED CELL DISTRIBUTION WIDTH 12.8 % (11.5-14.5); WHITE BLOOD COUNT 13.2 10^3/ul (4.5-11.0)
--- NOTE | 2017-07-18 08:41 | CP.PCM.PN ---
Subjective - Date & Time of Evaluation Date of Evaluation: 07/18/17 Time of Evaluation: 08:39 - Subjective Subjective: Patient states he only has pain after he does exercises. Denies CP/SOB/dizziness /cough/dysuria. Objective - Vital Signs/Intake and Output Vital Signs (last 24 hours): Temp Pulse Resp BP Pulse Ox 99.1 F 90 18 102/64 96 07/17/17 23:29 07/18/17 08:16 07/17/17 17:47 07/18/17 08:16 07/17/17 17:47 - Medications Medications: Current Medications Acetaminophen (Tylenol 325mg Tab) 650 mg PO Q6H PRN; Protocol PRN Reason: Fever >100.4 F Last Admin: 07/17/17 22:29 Dose: 650 mg Docusate Sodium (Colace) 100 mg PO BID [facility] PRN Reason: Protocol Last Admin: 07/17/17 17:17 Dose: Not Given Enoxaparin Sodium (Lovenox) 40 mg SC 0600 [facility] PRN Reason: Protocol Last Admin: 07/18/17 05:53 Dose: 40 mg Metoprolol Tartrate (Lopressor) 25 mg PO 0800,1800 [facility] PRN Reason: Protocol Last Admin: 07/18/17 08:16 Dose: 25 mg Multivitamins/Minerals (Therapeutic-M Tab) 1 tab PO 0800 [facility] PRN Reason: Protocol Last Admin: 07/18/17 08:16 Dose: 1 tab Oxycodone/Acetaminophen (Percocet 5/325 Mg Tab) 2 tab PO Q4H PRN; Protocol PRN Reason: Pain, moderate (4-7) Stop: 07/18/17 17:28 Last Admin: 07/17/17 10:42 Dose: 2 tab Pantoprazole Sodium (Protonix Ec Tab) 40 mg PO 0600 [facility] PRN Reason: Protocol Last Admin: 07/18/17 05:54 Dose: 40 mg Polyethylene Glycol (Miralax) 17 gm PO BID [facility] Last Admin: 07/17/17 17:18 Dose: Not Given - Labs Labs: 07/18/17 02:55 07/17/17 08:25 - Extremities Exam Additional comments: +ROM ankle/toes, sensation intact ++DP/pt pulses calves soft NT neg homans incision intact, dry, no erythema Assessment and Plan (1) Left displaced femoral neck fracture Assessment & Plan: POD#5 s/p left THR -tmax 101.2, likely atelectais, septic w/u pending -PT/OT -encourage OOB/IS -ortho stable, tolerating PT very well -d/w Dr. Garcia, agree with abvoe Status: Acute
[2017-07-18 08:50] LABS: ALB/GLOB RATIO 1.1 (1.1-1.8); ALBUMIN 3.7 g/dL (3.0-4.8); ALT/SGPT 141 U/L (7-56); AST/SGOT 90 U/L (17-59); BLOOD UREA NITROGEN 16 mg/dL (7-21); CALCIUM 9.1 mg/dL (8.4-10.5); GFR AFRICAN-AMERICAN > 60; GFR NON-AFRICAN AMERICAN > 60
[2017-07-18] MEDS: POLYETHYLENE GLYCOL 3350 17 GM/Dose PACKET PO SCH (10:55)
--- NOTE | 2017-07-18 12:34 | PN ---
DATE: FOLLOWUP SUBJECTIVE: The patient is currently undergoing physical therapy. He denies any chest pain. PHYSICAL EXAMINATION: VITAL SIGNS: Blood pressure 102/64; heart rate 90; temperature yesterday was 101.2, the most recent one following that was 99.1. HEENT: Normocephalic. CHEST: Clear. HEART: S1 and S2 regular. ABDOMEN: Soft. EXTREMITIES: No edema. LABORATORY DATA: Today's white count 13.2, hemoglobin and hematocrit 10 and 30.1, platelet count 310,000. Today's SMA-7 is within normal limits except for glucose 111, alkaline phosphatase 148. ASSESSMENT: 1. Status post total left hip replacement. 2. Fever and leukocytosis. 3. Hypertension. RECOMMENDATIONS: Continue Lopressor 25 mg twice a day, Lovenox 40 mg subcutaneously once a day, Percocet 2 tablets q. 4 hours p.r.n., Tylenol p.r.n. Obtain 2 sets of blood cultures. Delano Raza MD
--- NOTE | 2017-07-18 13:43 | CP.PCM.PN ---
<Chidi Steen - Last Filed: 07/18/17 16:12> Subjective - Date & Time of Evaluation Date of Evaluation: 07/18/17 Time of Evaluation: 09:20 - Subjective Subjective: Medicine progress note for Dr. Redd Floyd Hospitalist Service Patient seen and examined. Patient reports that he felt a burning sensation in the back of his neck overnight and admitted that he felt feverish. Patient also reports that he had 3 bowel movements yesterday and 1 this morning that were watery and foul smelling. Patient states that his pain is controlled at this time. Objective - Vital Signs/Intake and Output Vital Signs (last 24 hours): Temp Pulse Resp BP Pulse Ox 99.9 F H 94 H 16 108/66 100 07/18/17 11:47 07/18/17 11:47 07/18/17 11:47 07/18/17 11:47 07/18/17 11:47 - Medications Medications: Current Medications Acetaminophen (Tylenol 325mg Tab) 650 mg PO Q6H PRN; Protocol PRN Reason: Fever >100.4 F Last Admin: 07/17/17 22:29 Dose: 650 mg Enoxaparin Sodium (Lovenox) 40 mg SC 0600 [facility] PRN Reason: Protocol Last Admin: 07/18/17 05:53 Dose: 40 mg Metoprolol Tartrate (Lopressor) 25 mg PO 0800,1800 [facility] PRN Reason: Protocol Last Admin: 07/18/17 08:16 Dose: 25 mg Multivitamins/Minerals (Therapeutic-M Tab) 1 tab PO 0800 [facility] PRN Reason: Protocol Last Admin: 07/18/17 08:16 Dose: 1 tab Oxycodone HCl (Oxycodone Immediate Release Tab) 5 mg PO Q8H PRN PRN Reason: Pain, severe (8-10) Pantoprazole Sodium (Protonix Ec Tab) 40 mg PO 0600 [facility] PRN Reason: Protocol Last Admin: 07/18/17 05:54 Dose: 40 mg - Labs Labs: 07/18/17 08:30 07/18/17 08:30 - Constitutional Appears: No Acute Distress - Head Exam Head Exam: ATRAUMATIC, NORMOCEPHALIC - Eye Exam Eye Exam: EOMI, Normal appearance - ENT Exam ENT Exam: Mucous Membranes Moist - Respiratory Exam Respiratory Exam: Clear to Ausculation Bilateral, NORMAL BREATHING PATTERN. absent: Rales, Rhonchi, Wheezes - Cardiovascular Exam Cardiovascular Exam: REGULAR RHYTHM, +S1, +S2 - GI/Abdominal Exam GI & Abdominal Exam: Soft, Normal Bowel Sounds. absent: Tenderness - Extremities Exam Extremities Exam: absent: Pedal Edema Additional comments: Left hip dressing is clean, dry, and intact - Neurological Exam Neurological Exam: Alert, Awake, Oriented x3 - Psychiatric Exam Psychiatric exam: Normal Affect, Normal Mood - Skin Skin Exam: Dry, Normal Color, Warm Assessment and Plan - Assessment and Plan (Free Text) Assessment: 47 yo male with no significant past medical history who presents s/p fall off ladder at work. Found to have left femoral neck fracture. Patient underwent left total hip arthroplasty and is now in TCU. 1. L hip fracture s/p mechanical Fall - POD 5 of Left total hip replacement (anterior approach), H/H and vitals are stable - CT hip showed displaced angulated subcapital hip fracture on the left - no LOC or trauma to head - hip/pelvic XR: left femoral neck fracture - L femoral XR: Subcapital fracture left femur - CXR unremarkable - Percocet switched to Oxycodone due to the Liver function studies - tylenol prn fevers - Lovenox 40mg SC for DVT ppx (2 weeks of anticoagulation per orthopedics) - Cardiology consulted, recs appreciated - ortho consulted, Dr. Garcia ([phone]), follow recs - Patient should be anticoagulated for at least 2 weeks post-op and followup with PMD and surgeon within 2 weeks of discharge 2. Fever - febrile last night 101.2 - follow up blood cultures, urine cultures, procalcitonin - continue ambulation and incentive spirometer 3. Diarrhea - likely due to miralax and colace which were discontinued - follow up c.diff studies and stool culture Disposition: continue rehab at TCU Discussed and seen with Dr. Redd Floyd <Redd Floyd - Last Filed: 07/19/17 18:23> Objective - Vital Signs/Intake and Output Vital Signs (last 24 hours): Temp Pulse Resp BP Pulse Ox 98.7 F 82 18 108/65 99 07/19/17 16:00 07/19/17 17:19 07/19/17 16:00 07/19/17 17:19 07/19/17 16:00 - Medications Medications: Current Medications Acetaminophen (Tylenol 325mg Tab) 650 mg PO Q6H PRN; Protocol PRN Reason: Fever >100.4 F Last Admin: 07/19/17 01:30 Dose: 650 mg Enoxaparin Sodium (Lovenox) 40 mg SC 0600 [facility] PRN Reason: Protocol Last Admin: 07/19/17 05:16 Dose: 40 mg Ceftriaxone Sodium (Rocephin 1 Gram Ivpb) 1 gm in 100 mls @ 100 mls/hr IVPB DAILY [facility] PRN Reason: Protocol Last Admin: 07/19/17 11:00 Dose: 100 mls/hr Metoprolol Tartrate (Lopressor) 25 mg PO 0800,1800 [facility] PRN Reason: Protocol Last Admin: 07/19/17 17:19 Dose: 25 mg Multivitamins/Minerals (Therapeutic-M Tab) 1 tab PO 0800 [facility] PRN Reason: Protocol Last Admin: 07/19/17 08:37 Dose: 1 tab Oxycodone HCl (Oxycodone Immediate Release Tab) 5 mg PO Q8H PRN PRN Reason: Pain, severe (8-10) Last Admin: 07/19/17 05:42 Dose: 5 mg Pantoprazole Sodium (Protonix Ec Tab) 40 mg PO 0600 [facility] PRN Reason: Protocol Last Admin: 07/19/17 05:16 Dose: 40 mg - Labs Labs: 07/18/17 08:30 07/18/17 08:30 Attending/Attestation - Attestation I have personally seen and examined this patient.: Yes I have fully participated in the care of the patient.: Yes I have reviewed all pertinent clinical information, including history, physical exam and plan: Yes Notes (Text): I have seen and examined the patient at bedside. Agree with the above note with the following additions/ exceptions: Briefly this is 47 year old male who was admitted for left femoral fracture s/p mechanical fall and underwent ORIF. Today is POD 5. He has been afebrile. Report 3 episodes of loose BM. It was noticed that he was given miralax and colace which was stopped today. He offers no other complaints. Continue Physical therapy and incentive spirometry. Upon discharge patient will follow up with Dr Dominique and in [facility] clinic. Dr Redd Floyd
[2017-07-18] MEDS: oxyCODONE 5 mg Immediate Release Tab PO PRN ×2 (14:27→22:16)
[2017-07-18 21:12] LABS: URINE BILIRUBIN NEGATIVE (NEGATIVE); URINE BLOOD MODERATE (NEGATIVE); URINE GLUCOSE (UA) NEGATIVE (NEGATIVE); URINE LEUKOCYTE ESTERASE LARGE Leu/uL (NEGATIVE); URINE NITRATE POSITIVE (NEGATIVE); URINE PROTEIN TRACE mg/dL (<30 mg/dL)
[2017-07-18 21:13] LABS: URINE APPEARANCE CLOUDY (CLEAR); URINE COLOR YELLOW (YELLOW)
[2017-07-18 21:26] LABS: URINE WBC TNTC /hpf (0-6)
[2017-07-18 21:27] LABS: URINE BACTERIA LARGE (NEG)
[2017-07-19] MEDS: Pantoprazole 40 mg EC Tab PO SCH (05:16)
[2017-07-19] MEDS: Enoxaparin 40 mg Syringe SC SCH (05:16)
[2017-07-19] MEDS: oxyCODONE 5 mg Immediate Release Tab PO PRN (05:42)
[2017-07-19] MEDS: Multivitamin With Minerals Tab PO SCH (08:37)
[2017-07-19] MEDS ORDERED: cefTRIAXone 1 gm 1 GM/100 ML BAG IVPB SCH (10:00)
--- NOTE | 2017-07-19 15:34 | PN ---
DATE: SUBJECTIVE: The patient is currently in rehab. He is able to ambulate with the help of hand rails. He denies any chest pain. PHYSICAL EXAMINATION: VITAL SIGNS: Blood pressure 115/75, heart rate 66, temperature 97.9, respirations 14. HEENT: Normocephalic. CHEST: Clear. HEART: S1 and S2, regular. EXTREMITIES: No edema. LABORATORY DATA: Blood culture is negative after 24 hours. ASSESSMENT: 1. Status post total left hip replacement. 2. Hypertension. 3. Fever. RECOMMENDATIONS: Continue Lopressor 25 mg twice a day, subcutaneous Lovenox 40 mg daily, IV Rocephin 1 g daily. Follow up blood culture. Delano Raza MD
[2017-07-20] MEDS: Pantoprazole 40 mg EC Tab PO SCH (05:31)
[2017-07-20] MEDS: Enoxaparin 40 mg Syringe SC SCH (05:31)
[2017-07-20] MEDS ORDERED: cefTRIAXone 1 gm 1 GM/100 ML BAG IVPB SCH (06:00)
[2017-07-20 07:28] LABS: BASO # 0.04 K/mm3 (0.0-2.0); BASO % 0.3 % (0.0-3.0); EOS # 0.3 (0.0-0.7); EOS % 2.3 % (1.5-5.0); GRAN # 9.21 (1.4-6.5); GRAN % 76.7 % (50.0-68.0); HEMOGLOBIN 9.5 g/dL (14.0-18.0); LYMPH # 1.6 (1.2-3.4); LYMPH % 13.2 % (22.0-35.0); MEAN CELL VOLUME 83.2 fl (80.0-105.0); MEAN CORPUSCULAR HGB CONC 32.4 g/dl (31.0-37.0); MEAN PLATELET VOLUME 9.4 fl (7.0-11.0); MONO # 0.9 (0.1-0.6); MONO % 7.5 % (1.0-6.0); PLATELET COUNT 369 10^3/uL (120.0-450.0); RBC 3.52 10^6/uL (3.5-6.1); RED CELL DISTRIBUTION WIDTH 13.1 % (11.5-14.5)
[2017-07-20 07:39] LABS: ALB/GLOB RATIO 1.1 (1.1-1.8); ALBUMIN 3.5 g/dL (3.0-4.8); ALT/SGPT 160 U/L (7-56); AST/SGOT 95 U/L (17-59); BLOOD UREA NITROGEN 17 mg/dL (7-21); GFR AFRICAN-AMERICAN > 60; GFR NON-AFRICAN AMERICAN > 60
[2017-07-20] MEDS: Multivitamin With Minerals Tab PO SCH (08:21)
[2017-07-20 11:01] LABS: BAND 5 % (0-2); EOSINOPHIL 3 % (0.0-3.0); LYMPHOCYTE 15 % (22.0-35.0); METAMYELOCYTE 3 %; MONOCYTE 3 % (1.0-6.0); NEUTROPHIL 71 % (50.0-70.0); NUCLEATED RED BLOOD CELL 1 %
[2017-07-20 11:02] LABS: POLYCHROMASIA SLIGHT
--- NOTE | 2017-07-20 13:37 | CP.PCM.PN ---
<Chidi Steen - Last Filed: 07/20/17 19:29> Subjective - Date & Time of Evaluation Date of Evaluation: 07/20/17 Time of Evaluation: 07:30 - Subjective Subjective: Medicine progress note for Dr. Redd Floyd Hospitalist Service Patient seen and examined. Patient reports resolution in dysuria that he began experiencing on Monday night. Patient also reports resolution of diarrhea. Patient states that he is doing well and is tolerating his therapy with pain controlled. Objective - Vital Signs/Intake and Output Vital Signs (last 24 hours): Temp Pulse Resp BP Pulse Ox 98.7 F 82 18 104/67 99 07/19/17 16:00 07/20/17 08:20 07/19/17 16:00 07/20/17 08:20 07/19/17 16:00 - Medications Medications: Current Medications Acetaminophen (Tylenol 325mg Tab) 650 mg PO Q6H PRN; Protocol PRN Reason: Fever >100.4 F Last Admin: 07/19/17 01:30 Dose: 650 mg Cefpodoxime Proxetil (Vantin) 200 mg PO Q12 [facility] Enoxaparin Sodium (Lovenox) 40 mg SC 0600 [facility] PRN Reason: Protocol Last Admin: 07/20/17 05:31 Dose: 40 mg Metoprolol Tartrate (Lopressor) 25 mg PO 0800,1800 [facility] PRN Reason: Protocol Last Admin: 07/20/17 08:20 Dose: 25 mg Multivitamins/Minerals (Therapeutic-M Tab) 1 tab PO 0800 [facility] PRN Reason: Protocol Last Admin: 07/20/17 08:21 Dose: 1 tab Oxycodone HCl (Oxycodone Immediate Release Tab) 5 mg PO Q8H PRN PRN Reason: Pain, severe (8-10) Last Admin: 07/19/17 05:42 Dose: 5 mg Pantoprazole Sodium (Protonix Ec Tab) 40 mg PO 0600 [facility] PRN Reason: Protocol Last Admin: 07/20/17 05:31 Dose: 40 mg - Labs Labs: 07/20/17 06:30 07/20/17 06:30 - Constitutional Appears: No Acute Distress - Head Exam Head Exam: ATRAUMATIC, NORMOCEPHALIC - Eye Exam Eye Exam: EOMI, Normal appearance - ENT Exam ENT Exam: Mucous Membranes Moist - Respiratory Exam Respiratory Exam: Clear to Ausculation Bilateral, NORMAL BREATHING PATTERN. absent: Rales, Rhonchi, Wheezes - Cardiovascular Exam Cardiovascular Exam: REGULAR RHYTHM, +S1, +S2 - GI/Abdominal Exam GI & Abdominal Exam: Soft, Normal Bowel Sounds. absent: Distended, Tenderness - Extremities Exam Additional comments: Left hip dressing is clean, dry, and intact - Neurological Exam Neurological Exam: Alert, Awake, Oriented x3 - Psychiatric Exam Psychiatric exam: Normal Affect, Normal Mood - Skin Skin Exam: Dry, Warm Assessment and Plan - Assessment and Plan (Free Text) Assessment: 47 yo male with no significant past medical history who presents s/p fall off ladder at work. Found to have left femoral neck fracture. Patient underwent left total hip arthroplasty and is now in TCU. While in TCU, patient developed a urinary tract infection growing E. coli for which he is being treated. 1. L hip fracture s/p mechanical Fall - POD 5 of Left total hip replacement (anterior approach), H/H and vitals are stable - CT hip showed displaced angulated subcapital hip fracture on the left - no LOC or trauma to head - hip/pelvic XR: left femoral neck fracture - L femoral XR: Subcapital fracture left femur - CXR unremarkable - Percocet switched to Oxycodone due to the Liver function studies - tylenol prn fevers - Lovenox 40mg SC for DVT ppx (2 weeks of anticoagulation per orthopedics) - Cardiology consulted, recs appreciated - ortho consulted, Dr. Garcia ([phone]), follow recs - Patient should be anticoagulated for at least 2 weeks post-op and followup with PMD and surgeon within 2 weeks of discharge 2. Urinary Tract Infection - Urine cultures grew E. coli - Rocephin 1 gm IV and switched to PO antibiotics for Monday 3. Diarrhea - likely due to miralax and colace which were discontinued - follow up c.diff studies and stool culture Disposition: Discharge tomorrow from TCU. Patient will be given 1 week of Eliquis 2.5 mg PO BID as well as oral antibiotics. Discussed and seen with Dr. Redd Floyd <Redd Floyd - Last Filed: 07/21/17 12:01> Objective - Vital Signs/Intake and Output Vital Signs (last 24 hours): Temp Pulse Resp BP Pulse Ox 98 F 78 18 92/52 L 95 07/21/17 06:00 07/21/17 08:22 07/21/17 06:00 07/21/17 08:22 07/21/17 06:00 - Labs Labs: 07/20/17 06:30 07/20/17 06:30 Attending/Attestation - Attestation I have personally seen and examined this patient.: Yes I have fully participated in the care of the patient.: Yes I have reviewed all pertinent clinical information, including history, physical exam and plan: Yes Notes (Text): I have seen and examined the patient at bedside. Agree with the above note with the following additions/ exceptions: Briefly this is 47 year old male who was admitted for left femoral fracture s/p mechanical fall and underwent ORIF. He has been afebrile. Diarrhea and urinary symptoms have resolved. Continue po antibiotics for UTI. He offers no other complaints. Continue Physical therapy and incentive spirometry. Upon discharge patient will follow up with Dr Dominique and in [facility] clinic. Dr Redd Floyd
[2017-07-20] MEDS: oxyCODONE 5 mg Immediate Release Tab PO PRN (17:30)
[2017-07-21] MEDS: oxyCODONE 5 mg Immediate Release Tab PO PRN (00:43)
[2017-07-21] MEDS: Pantoprazole 40 mg EC Tab PO SCH (05:49)
[2017-07-21] MEDS: Enoxaparin 40 mg Syringe SC SCH (05:49)
[2017-07-21 06:38] VITALS: BP 92/52; PULSE 78; RESP 18; TEMP 98; O2SAT 95
--- NOTE | 2017-07-21 06:49 | CP.PCM.DIS ---
<Chidi Steen - Last Filed: 07/21/17 11:50> Provider - Provider Date of Admission: 07/15/17 16:43 Attending physician: Redd Floyd MD Primary care physician: NO PRIMARY CARE PROVIDER Consults: Orthopedics: Dr. Garcia Cardiology: Dr. Raza Time Spent in preparation of Discharge (in minutes): 40 Diagnosis - Discharge Diagnosis (1) Left displaced femoral neck fracture Status: Acute Priority: High (2) Urinary tract infection Status: Acute Priority: Medium Hospital Course - Lab Results Lab Results: Micro Results 07/18/17 18:11 Urine Urine Culture - Final Escherichia Coli 07/18/17 08:50 Blood Blood Culture - Preliminary NO GROWTH AFTER 48 HOURS 07/18/17 08:30 Blood Blood Culture - Preliminary NO GROWTH AFTER 48 HOURS 07/18/17 19:30 Urine,Clean Catch Urine Culture - Preliminary Gram Negative José Miguel Most Recent Lab Values WBC 12.0 10^3/ul (4.5-11.0) H 07/20/17 06:30 RBC 3.52 10^6/uL (3.5-6.1) 07/20/17 06:30 Hgb 9.5 g/dL (14.0-18.0) L 07/20/17 06:30 Hct 29.3 % (42.0-52.0) L 07/20/17 06:30 MCV 83.2 fl (80.0-105.0) 07/20/17 06:30 MCH 27.0 pg (25.0-35.0) 07/20/17 06:30 MCHC 32.4 g/dl (31.0-37.0) 07/20/17 06:30 RDW 13.1 % (11.5-14.5) 07/20/17 06:30 Plt Count 369 10^3/uL (120.0-450.0) 07/20/17 06:30 MPV 9.4 fl (7.0-11.0) 07/20/17 06:30 Gran % 76.7 % (50.0-68.0) H 07/20/17 06:30 Lymph % (Auto) 13.2 % (22.0-35.0) L 07/20/17 06:30 [place] % (Auto) 7.5 % (1.0-6.0) H 07/20/17 06:30 Eos % (Auto) 2.3 % (1.5-5.0) 07/20/17 06:30 Baso % (Auto) 0.3 % (0.0-3.0) 07/20/17 06:30 Gran # 9.21 (1.4-6.5) H 07/20/17 06:30 Lymph # (Auto) 1.6 (1.2-3.4) 07/20/17 06:30 Gilmer # (Auto) 0.9 (0.1-0.6) H 07/20/17 06:30 Eos # (Auto) 0.3 (0.0-0.7) 07/20/17 06:30 Baso # (Auto) 0.04 K/mm3 (0.0-2.0) 07/20/17 06:30 Neutrophils % (Manual) 71 % (50.0-70.0) H 07/20/17 06:30 Band Neutrophils % 5 % (0-2) H 07/20/17 06:30 Lymphocytes % (Manual) 15 % (22.0-35.0) L 07/20/17 06:30 Monocytes % (Manual) 3 % (1.0-6.0) 07/20/17 06:30 Eosinophils % (Manual) 3 % (0.0-3.0) 07/20/17 06:30 Metamyelocytes % 3 % 07/20/17 06:30 Nucleated RBC % 1 % 07/20/17 06:30 Polychromasia Slight 07/20/17 06:30 Sodium 139 mmol/L (132-148) 07/20/17 06:30 Potassium 4.6 mmol/L (3.6-5.0) 07/20/17 06:30 Chloride 101 mmol/L (98-107) 07/20/17 06:30 Carbon Dioxide 29 mmol/L (21-33) 07/20/17 06:30 Anion Gap 13 (10-20) 07/20/17 06:30 BUN 17 mg/dL (7-21) 07/20/17 06:30 Creatinine 0.9 mg/dl (0.8-1.5) 07/20/17 06:30 Est GFR ( Amer) > 60 07/20/17 06:30 Est GFR (Non-Af Amer) > 60 07/20/17 06:30 Random Glucose 108 mg/dL (70-110) 07/20/17 06:30 Calcium 9.0 mg/dL (8.4-10.5) 07/20/17 06:30 Total Bilirubin 0.5 mg/dL (0.2-1.3) 07/20/17 06:30 AST 95 U/L (17-59) H 07/20/17 06:30 ALT 160 U/L (7-56) H 07/20/17 06:30 Alkaline Phosphatase 164 U/L (38-126) H 07/20/17 06:30 Total Protein 6.6 g/dL (5.8-8.3) 07/20/17 06:30 Albumin 3.5 g/dL (3.0-4.8) 07/20/17 06:30 Globulin 3.2 gm/dL 07/20/17 06:30 Albumin/Globulin Ratio 1.1 (1.1-1.8) 07/20/17 06:30 Procalcitonin 0.37 NG/ML (0.19-0.49) 07/18/17 08:30 Urine Color Yellow (YELLOW) 07/18/17 19:30 Urine Appearance Cloudy (CLEAR) 07/18/17 19:30 Urine pH 6.0 (4.7-8.0) 07/18/17 19:30 Ur Specific [place] 1.015 (1.005-1.035) 07/18/17 19:30 Urine Protein Trace mg/dL (<30 mg/dL) H 07/18/17 19:30 Urine Glucose (UA) Negative mg/dL (NEGATIVE) 07/18/17 19:30 Urine Ketones Negative mg/dL (NEGATIVE) 07/18/17 19:30 Urine Blood Moderate (NEGATIVE) H 07/18/17 19:30 Urine Nitrate Positive (NEGATIVE) H 07/18/17 19:30 Urine Bilirubin Negative (NEGATIVE) 07/18/17 19:30 Urine Urobilinogen 1.0 E.U./dL (<1 E.U./dL) H 07/18/17 19:30 Ur Leukocyte Esterase Large Cal/uL (NEGATIVE) H 07/18/17 19:30 Urine RBC 2 - 5 /hpf (0-2) 07/18/17 19:30 Urine WBC Tntc /hpf (0-6) 07/18/17 19:30 Ur Epithelial Cells 4 - 5 /hpf (0-5) 07/18/17 19:30 Urine Bacteria Large (NEG) 07/18/17 19:30 - Hospital Course Hospital Course: Initial History of Present Illness on 07/16/17: "47 yo male with no significant past medical history who presents s/p fall at work. Patient states he was at work on a ladder which was 36 inches high. Patient states that he was climbing the ladder and as he went to take anther step, the ladder base shifted and both he and the ladder tipped over. He states he landed on his left side while holding onto the ladder on a plywood surface with stacked 4x4 wooden slabs. A co-worker immediately ran to help him. Pt was not able to move his leg well and could not weight-bear when he tried to stand up. Patient denied hitting his hit, denied any LOC, vertigo, syncope or any other complaints at this time. Hip/pelvic XR: left femoral neck fracture. L femoral XR: Subcapital fracture left femurCT hip showed displaced angulated subcapital hip fracture on the left. L hip fracture s/p mechanical Fall tolerated procedure by Dr. Dominique, Ortho, no precautions as it was anterior approach technique. Pt was encouraged ambulation and incentive spirometer. Pt tolerated PT. Analgesics provided for pain control. Pt was tolerating oral intake, ambulating, voiding regularly and having regular bowel movements. Pt expereinced post op fevers, as per Orth, likely related to decreased ambulation. As per Ortho, Dr. Dominique,recommended no abx at this time. Recommended acute rehab and further physical therapy. Patient should be anticoagulated for at least 2 weeks post-op and followup with PMD and surgeon within 2 weeks of discharge. Pt is to be transferred to TCU with further dispo to be placement at [facility]." Hospital Course: Patient admitted to the [facility] for left subcapital femur fracture. Patient requested definitive treatment. Left total hip arthroplasty (anterior approach) was performed on 07/13/17. Patient later discharged from the acute care hospital to the Transitional Care Unit on 07/15/17. Patient developed fever and dysuria while in the TCU and was treated with IV antibiotics with resolution of symptoms. Patient discharged with prescriptions for oral antibiotics for the E. coli that was found in the urine as well as one week supply of Eliquis. Patient is to follow up with orthopedics after discharge. Discharge Exam - Head Exam Head Exam: ATRAUMATIC, NORMOCEPHALIC - Eye Exam Eye Exam: EOMI, Normal appearance - ENT Exam ENT Exam: Mucous Membranes Moist - Respiratory Exam Respiratory Exam: Clear to PA & Lateral, NORMAL BREATHING PATTERN. absent: Rales, Rhonchi, Wheezes - Cardiovascular Exam Cardiovascular Exam: REGULAR RHYTHM, +S1, +S2 - GI/Abdominal Exam GI & Abdominal Exam: Normal Bowel Sounds, Soft. absent: Distended, Tenderness - Extremities Exam Extremities exam: pedal pulses present Additional comments: Left hip dressing is clean, dry, and intact - Back Exam Back exam: absent: CVA tenderness (L), CVA tenderness (R) - Neurological Exam Neurological exam: Alert, CN II-XII Intact, Oriented x3 - Psychiatric Exam Psychiatric exam: Normal Affect, Normal Mood - Skin Skin Exam: Dry, Warm Discharge Plan - Discharge Medications Prescriptions: Apixaban [Eliquis] 2.5 mg PO BID #14 tab Ciprofloxacin HCl [Cipro] 500 mg PO BID #10 tablet oxyCODONE [oxyCODONE Immediate Release Tab] 5 mg PO Q8 PRN #12 tab PRN Reason: Pain, Severe (8-10) - Follow Up Plan Condition: STABLE Disposition: HOME/ ROUTINE Instructions: Preventing Falls, Open Reduction and Internal Fixation Surgery ( DC), Hip Fracture (GEN) Additional Instructions: Weight bearing as tolerated. Use rolling walker or crutches with ambulation. Please take Eliquis 2.5 mg two times a day for one week. Please take Ciprofloxacin 500 mg two times a day for 5 days. Please follow up with Dr. Garcia the orthopedic surgeon in his office within 2 weeks after leaving the hospital. If there are new or concerning symptoms, please go to the nearest emergency room. Por favor, tome Eliquis 2.5 mg dos veces al da yamilex ferny semana. Por favor tome ciprofloxacina 500 mg dos veces al da yamilex 5 hyatt. Por favor, leslie un seguimiento con el Dr. Garcia el cirucarmitao ortopdico en [place] [facility] dentro de las 2 semanas posteriores a [place] [facility]. Si hay sntomas nuevos o preocupantes, dirjase a la jessica de emergencias ms winter. Referrals: [facility] at [facility] [place] [Outside] Gómez Garcia III, MD [Medical Doctor] - PCP,ISMAEL [Primary Care Provider] - <Redd Floyd - Last Filed: 07/21/17 12:09> Provider - Provider Date of Admission: 07/15/17 16:43 Attending physician: Redd Floyd MD Primary care physician: ISMAEL PRIMARY CARE PROVIDER Hospital Course - Lab Results Lab Results: Micro Results 07/18/17 08:50 Blood Blood Culture - Preliminary NO GROWTH AFTER 3 DAYS 07/18/17 08:30 Blood Blood Culture - Preliminary NO GROWTH AFTER 3 DAYS 07/18/17 18:11 Urine Urine Culture - Final Escherichia Coli 07/18/17 19:30 Urine,Clean Catch Urine Culture - Preliminary Gram Negative José Miguel Most Recent Lab Values WBC 12.0 10^3/ul (4.5-11.0) H 07/20/17 06:30 RBC 3.52 10^6/uL (3.5-6.1) 07/20/17 06:30 Hgb 9.5 g/dL (14.0-18.0) L 07/20/17 06:30 Hct 29.3 % (42.0-52.0) L 07/20/17 06:30 MCV 83.2 fl (80.0-105.0) 07/20/17 06:30 MCH 27.0 pg (25.0-35.0) 07/20/17 06:30 MCHC 32.4 g/dl (31.0-37.0) 07/20/17 06:30 RDW 13.1 % (11.5-14.5) 07/20/17 06:30 Plt Count 369 10^3/uL (120.0-450.0) 07/20/17 06:30 MPV 9.4 fl (7.0-11.0) 07/20/17 06:30 Gran % 76.7 % (50.0-68.0) H 07/20/17 06:30 Lymph % (Auto) 13.2 % (22.0-35.0) L 07/20/17 06:30 Gilmer % (Auto) 7.5 % (1.0-6.0) H 07/20/17 06:30 Eos % (Auto) 2.3 % (1.5-5.0) 07/20/17 06:30 Baso % (Auto) 0.3 % (0.0-3.0) 07/20/17 06:30 Gran # 9.21 (1.4-6.5) H 07/20/17 06:30 Lymph # (Auto) 1.6 (1.2-3.4) 07/20/17 06:30 Gilmer # (Auto) 0.9 (0.1-0.6) H 07/20/17 06:30 Eos # (Auto) 0.3 (0.0-0.7) 07/20/17 06:30 Baso # (Auto) 0.04 K/mm3 (0.0-2.0) 07/20/17 06:30 Neutrophils % (Manual) 71 % (50.0-70.0) H 07/20/17 06:30 Band Neutrophils % 5 % (0-2) H 07/20/17 06:30 Lymphocytes % (Manual) 15 % (22.0-35.0) L 07/20/17 06:30 Monocytes % (Manual) 3 % (1.0-6.0) 07/20/17 06:30 Eosinophils % (Manual) 3 % (0.0-3.0) 07/20/17 06:30 Metamyelocytes % 3 % 07/20/17 06:30 Nucleated RBC % 1 % 07/20/17 06:30 Polychromasia Slight 07/20/17 06:30 Sodium 139 mmol/L (132-148) 07/20/17 06:30 Potassium 4.6 mmol/L (3.6-5.0) 07/20/17 06:30 Chloride 101 mmol/L (98-107) 07/20/17 06:30 Carbon Dioxide 29 mmol/L (21-33) 07/20/17 06:30 Anion Gap 13 (10-20) 07/20/17 06:30 BUN 17 mg/dL (7-21) 07/20/17 06:30 Creatinine 0.9 mg/dl (0.8-1.5) 07/20/17 06:30 Est GFR ( Amer) > 60 07/20/17 06:30 Est GFR (Non-Af Amer) > 60 07/20/17 06:30 Random Glucose 108 mg/dL (70-110) 07/20/17 06:30 Calcium 9.0 mg/dL (8.4-10.5) 07/20/17 06:30 Total Bilirubin 0.5 mg/dL (0.2-1.3) 07/20/17 06:30 AST 95 U/L (17-59) H 07/20/17 06:30 ALT 160 U/L (7-56) H 07/20/17 06:30 Alkaline Phosphatase 164 U/L (38-126) H 07/20/17 06:30 Total Protein 6.6 g/dL (5.8-8.3) 07/20/17 06:30 Albumin 3.5 g/dL (3.0-4.8) 07/20/17 06:30 Globulin 3.2 gm/dL 07/20/17 06:30 Albumin/Globulin Ratio 1.1 (1.1-1.8) 07/20/17 06:30 Procalcitonin 0.37 NG/ML (0.19-0.49) 07/18/17 08:30 Urine Color Yellow (YELLOW) 07/18/17 19:30 Urine Appearance Cloudy (CLEAR) 07/18/17 19:30 Urine pH 6.0 (4.7-8.0) 07/18/17 19:30 Ur Specific [place] 1.015 (1.005-1.035) 07/18/17 19:30 Urine Protein Trace mg/dL (<30 mg/dL) H 07/18/17 19:30 Urine Glucose (UA) Negative mg/dL (NEGATIVE) 07/18/17 19:30 Urine Ketones Negative mg/dL (NEGATIVE) 07/18/17 19:30 Urine Blood Moderate (NEGATIVE) H 07/18/17 19:30 Urine Nitrate Positive (NEGATIVE) H 07/18/17 19:30 Urine Bilirubin Negative (NEGATIVE) 07/18/17 19:30 Urine Urobilinogen 1.0 E.U./dL (<1 E.U./dL) H 02/13/18 19:30 Ur Leukocyte Esterase Large Cal/uL (NEGATIVE) H 07/18/17 19:30 Urine RBC 2 - 5 /hpf (0-2) 07/18/17 19:30 Urine WBC Tntc /hpf (0-6) 07/18/17 19:30 Ur Epithelial Cells 4 - 5 /hpf (0-5) 07/18/17 19:30 Urine Bacteria Large (NEG) 07/18/17 19:30 Attending/Attestation - Attestation I have personally seen and examined this patient.: Yes I have fully participated in the care of the patient.: Yes I have reviewed all pertinent clinical information, including history, physical exam and plan: Yes Notes (Text): I have seen and examined the patient at bedside. Agree with the above note with the following additions/ exceptions: Briefly this is 47 year old male who was admitted for left femoral fracture s/p mechanical fall and underwent ORIF. He has been afebrile. Diarrhea and urinary symptoms have resolved. Continue po antibiotics for UTI. He offers no other complaints. Continue Physical therapy outpatient and incentive spirometry. Upon discharge patient will follow up with Dr Dominique and in [facility] clinic. Dr Redd Floyd
[2017-07-21] MEDS: Multivitamin With Minerals Tab PO SCH (08:23)
[2017-07-21] MEDS ORDERED: Cefpodoxime (Vantin) 200 mg Tab PO SCH (10:00)
[2017-07-21 12:03] LABS: HEPATITIS B SURFACE AG Negative (NEGATIVE)
[2017-07-21 12:09] LABS: HEPATITIS A IGM NEGATIVE (NEGATIVE); HEPATITIS B CORE AB NEGATIVE (NEGATIVE)
[2017-07-21 12:21] LABS: HEPATITIS C ANTIBODY NEGATIVE (NEGATIVE)
== END 2017-07-21 11:44 | disposition home or self-care (01) | DRG 560 ==
LOC: TRCU 16:43
PROVIDERS: ADMIT Internal Medicine; ATTEND Hospitalist
PROC: F07Z9FZ Gait Training/Functional Ambulation Treatment using Assistive, Adaptive, Supportive or Protective Equipment (ICD-10-PCS; principal; 2017-07-17)
PROC: F07L6YZ Therapeutic Exercise Treatment of Musculoskeletal System - Lower Back / Lower Extremity using Other Equipment (ICD-10-PCS; 2017-07-18)
PROC: F08Z4FZ Home Management Treatment using Assistive, Adaptive, Supportive or Protective Equipment (ICD-10-PCS; 2017-07-18)
DX: S72.012D Unspecified intracapsular fracture of left femur, subsequent encounter for closed fracture with routine healing (principal); N39.0 Urinary tract infection, site not specified; E87.6 Hypokalemia; B96.20 Unspecified Escherichia coli [E. coli] as the cause of diseases classified elsewhere; R19.7 Diarrhea, unspecified; I10 Essential (primary) hypertension; W11.XXXD Fall on and from ladder, subsequent encounter; Z96.642 Presence of left artificial hip joint